=== PATIENT | female | born 1980 | race Caucasian/White ===

== ENCOUNTER 2016-12-05 20:42 | Emergency (ER) | payer MEDICAID ==
[2016-12-05 20:59] VITALS: BP 137/83
[2016-12-05] MEDS ORDERED: HYDROmorphone 1 MG/ML Syringe IVPUSH ONE ×2 (21:16→23:42)
[2016-12-05] MEDS ORDERED: Ondansetron 4 MG/2 ML SDV IVPUSH ONE (21:16)
--- NOTE | 2016-12-05 21:23 | EDM.PDOC ---
ED HPI GI/ABDOMINAL - General Chief Complaint: Gastrointestinal Problem Stated Complaint: RECTAL BLEEDING/CLOTS ABDOMINAL PAIN Time Seen by Provider: 12/05/16 20:52 Source of Information: Reports: Patient, RN notes reviewed History Limitations: Reports: No limitations - History of Present Illness INITIAL COMMENTS - FREE TEXT/NARRATIVE: The patient states that she found maroon blood clots and bright red blood per rectum when she went to the bathroom around 19:00 tonight. She did not have any pain at the time, but shortly afterwards he developed suprapubic and left lower quadrant abdominal pain. No recent nausea, vomiting, constipation, diarrhea, or urinary symptoms. No prior similar symptoms. The patient is not on any blood thinners. Her last colonoscopy was approximately 1.5 years ago, per Dr. Deena Rhodes. The patient recalls the finding of a single colon polyp, but does not recall anything about diverticulosis. Reviewing our records, I do not find a copy of the patient's colonoscopy report. - Related Data Allergies/ADRs: Allergies Allergy/AdvReac Type Severity Reaction Status Date / Time No Known Allergies Allergy Verified 12/05/16 20:54 Home Meds: Home Meds Omeprazole 40 mg PO BID 07/27/15 [History] Albuterol [Ventolin HFA] 2 puff INH Q4H PRN 02/26/16 [History] Zolpidem [Ambien] 5 mg PO BEDTIME PRN 02/26/16 [History] SUMAtriptan [Imitrex] 25 mg PO Q2H PRN #16 tablet 07/15/16 [Rx] Divalproex Sodium [Depakote] 1 tab PO DAILY 08/12/16 [History] Past Medical History HEENT History: Reports: Allergic rhinitis, Impaired vision Respiratory History: Reports: Asthma Gastrointestinal History: Reports: Colon polyp, GERD, PUD INVENTORY TAKER History: Reports: 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, Musculoskeletal History: Reports: Back pain, chronic (Degenerative disc disease) Neurological History: Reports: Migraines Psychiatric History: Reports: Other (see below) (Insomnia) - Past Surgical History HEENT Surgical History: Reports: Adenoidectomy, Tonsillectomy GI Surgical History: Reports: Cholecystectomy Female Surgical History: Reports: Hysterectomy (vaginal), Other (see below) ( Exploratory laparoscopy for endometriosis x 2) Neurological Surgical History: Reports: Lumbar spine (L5-S1 fusion), Other (see below) (Implantable spinal nerve stimulator) Social & Family History - Family History Family Medical History: Noncontributory - Tobacco Use Smoking Status *Q: Former Smoker Tobacco Use Within Last Twelve Months: No Years of Tobacco use: 10 Packs/Tins Daily: 0.5 Used Tobacco, but Quit: Yes Month Tobacco Last Used: Quit December 2013 Second Hand Smoke Exposure: No - Caffeine Use Caffeine Use: Reports: None - Alcohol Use Alcohol Use History: Yes Alcohol Use Frequency: Rarely - Recreational Drug Use Recreational Drug Use: No - Living Situation & Occupation Living situation: Reports: , with family (3 kids) Occupation: unemployed ED ROS GENERAL - Review of Systems Review Of Systems: See Below Constitutional: Reports: no symptoms HEENT: Reports: Other (Seasonal allergy symptoms) Respiratory: Reports: No Symptoms Cardiovascular: Reports: No symptoms Endocrine: Reports: no symptoms GI/Abdominal: Reports: No symptoms : Reports: no symptoms Musculoskeletal: Reports: no symptoms Skin: Reports: no symptoms Neurological: Reports: No Symptoms Psychiatric: Reports: No symptoms Hematologic/Lymphatic: Reports: no symptoms Immunologic: Reports: no symptoms ED EXAM, GI/ABD - Physical Exam Exam: See Below Exam Limited By: No limitations General Appearance: alert, WD/WN, anxious, mild distress Eyes: bilateral: normal appearance, EOMI Ears: normal external exam, hearing grossly normal Nose: normal inspection, no blood Throat/Mouth: Normal inspection, Normal lips, Normal voice, No airway compromise Head: atraumatic, normocephalic Neck: normal inspection, full range of motion Respiratory/Chest: no respiratory distress, lungs clear, normal breath sounds, no accessory muscle use Cardiovascular: normal peripheral pulses, regular rate, rhythm, no edema, no gallop, no JVD, no murmur, no rub GI/Abdominal: normal bowel sounds, soft, no organomegaly, no distention, no abnormal bruit, no mass, tenderness (Entire lower abdomen. Upper abdomen nontender.), guarding (Female) Exam: Deferred Rectal (Female) Exam: Normal Exam, Normal rectal tone, Heme + stool (Scant blood on finger. No stool in rectum.) Back Exam: normal inspection, full range of motion, CVA tenderness (L), CVA tenderness (R) Extremities: normal inspection, normal range of motion, no pedal edema, normal capillary refill Neurological: alert, oriented, normal cognition, no motor/sensory deficits Psychiatric: normal affect Skin Exam: Warm, Dry, Intact, Normal color, No rash Lymphatic: no adenopathy Course - Vital Signs Last Recorded V/S: Last Vital Signs Temp 36.7 C 12/05/16 20:55 Pulse 84 12/05/16 20:55 Resp 18 12/05/16 20:55 BP 137/83 12/05/16 20:55 Pulse Ox 100 12/05/16 20:55 Orthostatic Blood Pressure [ 120/81 Standing] Orthostatic Blood Pressure [ 119/80 Sitting] Orthostatic Blood Pressure [ 125/74 Supine] - Orders/Labs/Meds Orders: Active Orders 24 hr Category Date Time Status Orthostatic Vital Signs [RC] STAT Care 12/05/16 21:18 Active Abdomen Pelvis w Cont [CT] Stat Exams 12/05/16 21:16 Taken Sodium Chloride 0.9% [Normal Saline] 1,000 ml Med 12/05/16 21:30 Active IV ASDIRECTED Medication Orders Sodium Chloride (Normal Saline) 1,000 mls @ 150 mls/hr IV ASDIRECTED JAYE Last Admin: 12/05/16 21:35 Dose: 150 mls/hr Labs: Laboratory Tests 12/05/16 12/05/16 12/05/16 Range/Units 21:33 21:33 21:33 WBC 9.83 (3.98-10.04) K/mm3 RBC 4.09 (3.98-5.22) M/mm3 Hgb 12.3 (11.2-15.7) gm/L Hct 36.8 (34.1-44.9) % MCV 90.0 (79.4-94.8) fl MCH 30.1 (25.6-32.2) pg MCHC 33.4 (32.2-35.5) g/dl RDW Std Deviation 41.9 (36.4-46.3) fL Plt Count 272 (182-369) K/mm3 MPV 10.2 (9.4-12.3) fl Neutrophils % (Manual) 68 H (40-60) % Band Neutrophils % 0 (0-10) % Lymphocytes % (Manual) 20 (20-40) % Atypical Lymphs % 5 % Monocytes % (Manual) 5 (2-10) % Eosinophils % (Manual) 1 (0.7-5.8) % Basophils % (Manual) 1 (0.1-1.2) Toxic Granulation 2+ moderate Platelet Estimate Adequate Plt Morphology Comment Normal RBC Morph Comment Normal PT 10.0 (8.0-13.0) SECONDS INR 0.92 APTT 23 (22-36) SECONDS Sodium 144 (136-145) mEq/L Potassium 3.9 (3.5-5.1) mEq/L Chloride 105 (98-107) mEq/L Carbon Dioxide 23 (21-32) mEq/L Anion Gap 19.9 H (5-15) BUN 17 (7-18) mg/dL Creatinine 1.0 (0.55-1.02) mg/dL Est Cr Clr Drug Dosing 74.90 mL/min Estimated GFR (MDRD) > 60 (>60) mL/min BUN/Creatinine Ratio 17.0 (14-18) Glucose 106 (74-106) mg/dL Calcium 8.4 L (8.5-10.1) mg/dL Total Bilirubin 0.2 (0.2-1.0) mg/dL AST 16 (15-37) U/L ALT 30 (14-59) U/L Alkaline Phosphatase 73 (46-116) U/L Total Protein 6.6 (6.4-8.2) g/dl Albumin 3.3 L (3.4-5.0) g/dl Globulin 3.3 gm/dL Albumin/Globulin Ratio 1.0 (1-2) Lipase 192 (73-393) U/L Urine Color (Yellow) Urine Appearance (Clear) Urine pH (5.0-8.0) Ur Specific [place] (1.005-1.030) Urine Protein (Negative) Urine Glucose (UA) (Negative) Urine Ketones (Negative) Urine Occult Blood (Negative) Urine Nitrite (Negative) Urine Bilirubin (Negative) Urine Urobilinogen (0.2-1.0) Ur Leukocyte Esterase (Negative) Urine RBC (0-5) /hpf Urine WBC (0-5) /hpf Ur Epithelial Cells Ur Squamous Epith Cells (0-5) /hpf Calcium Oxalate Crystal (NONE) Urine Bacteria (FEW) /hpf Urine Mucus (FEW) /hpf 12/05/16 12/05/16 Range/Units 21:46 23:35 WBC (3.98-10.04) K/mm3 RBC (3.98-5.22) M/mm3 Hgb (11.2-15.7) gm/L Hct (34.1-44.9) % MCV (79.4-94.8) fl MCH (25.6-32.2) pg MCHC (32.2-35.5) g/dl RDW Std Deviation (36.4-46.3) fL Plt Count (182-369) K/mm3 MPV (9.4-12.3) fl Neutrophils % (Manual) (40-60) % Band Neutrophils % (0-10) % Lymphocytes % (Manual) (20-40) % Atypical Lymphs % % Monocytes % (Manual) (2-10) % Eosinophils % (Manual) (0.7-5.8) % Basophils % (Manual) (0.1-1.2) Toxic Granulation Platelet Estimate Plt Morphology Comment RBC Morph Comment PT (8.0-13.0) SECONDS INR APTT (22-36) SECONDS Sodium (136-145) mEq/L Potassium (3.5-5.1) mEq/L Chloride (98-107) mEq/L Carbon Dioxide (21-32) mEq/L Anion Gap (5-15) BUN (7-18) mg/dL Creatinine (0.55-1.02) mg/dL Est Cr Clr Drug Dosing mL/min Estimated GFR (MDRD) (>60) mL/min BUN/Creatinine Ratio (14-18) Glucose (74-106) mg/dL Calcium (8.5-10.1) mg/dL Total Bilirubin (0.2-1.0) mg/dL AST (15-37) U/L ALT (14-59) U/L Alkaline Phosphatase (46-116) U/L Total Protein (6.4-8.2) g/dl Albumin (3.4-5.0) g/dl Globulin gm/dL Albumin/Globulin Ratio (1-2) Lipase (73-393) U/L Urine Color Yellow Light yellow (Yellow) Urine Appearance Clear Clear (Clear) Urine pH 6.0 5.5 (5.0-8.0) Ur Specific [place] > or = 1.030 1.020 (1.005-1.030) Urine Protein 1+ H Negative (Negative) Urine Glucose (UA) Negative Negative (Negative) Urine Ketones Trace H Negative (Negative) Urine Occult Blood Negative Negative (Negative) Urine Nitrite Negative Negative (Negative) Urine Bilirubin 1+ H Negative (Negative) Urine Urobilinogen 0.2 0.2 (0.2-1.0) Ur Leukocyte Esterase Negative Negative (Negative) Urine RBC 0-5 Not seen (0-5) /hpf Urine WBC 5-10 H 0-5 (0-5) /hpf Ur Epithelial Cells Not Reportable Not Reportable Ur Squamous Epith Cells 5-10 H 5-10 H (0-5) /hpf Calcium Oxalate Crystal Few H (NONE) Urine Bacteria Many H Not seen (FEW) /hpf Urine Mucus Many H Not seen (FEW) /hpf Meds: Medications Generic Name Dose Route Start Last Admin Trade Name Freq PRN Reason Stop Dose Admin Sodium Chloride 1,000 mls @ 150 mls/hr 12/05/16 21:30 12/05/16 21:35 Normal Saline IV 150 mls/hr ASDIRECTED JAYE Administration Discontinued Medications Generic Name Dose Route Start Last Admin Trade Name Freq PRN Reason Stop Dose Admin Hydromorphone HCl 1 mg 12/05/16 21:16 12/05/16 21:35 Dilaudid IVPUSH 12/05/16 21:17 1 mg ONETIME ONE Administration Hydromorphone HCl 1 mg 12/05/16 23:42 12/05/16 23:50 Dilaudid IVPUSH 12/05/16 23:43 1 mg ONETIME ONE Administration Ondansetron HCl 4 mg 12/05/16 21:16 12/05/16 21:35 Zofran IVPUSH 12/05/16 21:17 4 mg ONETIME ONE Administration - Radiology Interpretation Free Text/Narrative:: CT of the abdomen and pelvis with oral and IV contrast is read by [facility] as: 1. No acute findings. 2. Non-acute findings are described above. - Re-Assessments/Exams Free Text/Narrative Re-Assessment/Exam: 12/05/16 22:16 The patient is not orthostatic. 12/05/16 22:27 The patient's urinalysis is contaminated and uninterpretable. I had ordered a quick catheter, and explained to the patient at the time why that was necessary , however, when the nurse went to acquire the urine sample, the patient apparently refused. Given that the patient is complaining of lower abdominal pain and has suprapubic tenderness, I think it is important that we rule out a UTI, therefore I am requesting that we obtain a second urine sample, this time by quick catheter. 12/06/16 00:22 Test results discussed with the patient. Today's workup is completely unremarkable, and does not explain the cause of the patient's pain or lower GI bleed. I am recommending that if her symptoms persist, that she followup with Dr. Rhodes for possible colonoscopy. Departure - Departure Time of Disposition: 00:23 Disposition: Home, Self-Care 01 Condition: good Clinical Impression: Lower GI bleed, Abdominal pain of unknown etiology Referrals: Leann Meeks DO [Primary Care Provider] - Deena Rhodes MD [Physician] - Forms: ED Department Discharge Additional Instructions: You were seen in the emergency room for rectal bleeding and lower abdominal pain. Workup in the ER included blood work, a urinalysis, a CT scan of your abdomen and pelvis, and positional blood pressure checks. Your entire workup was unremarkable, and does not explain the cause of your lower GI bleed or abdominal pain. If your symptoms persist, we recommend that you followup with Dr. Deena Rhodes for further evaluation, possibly including a colonoscopy. If any other problems, please do not hesitate to return to the ER. - My Orders Last 24 Hours: My Active Orders 12/05/16 21:16 Abdomen Pelvis w Cont [CT] Stat 12/05/16 21:18 Orthostatic Vital Signs [RC] STAT 12/05/16 21:30 Sodium Chloride 0.9% [Normal Saline] 1,000 ml IV ASDIRECTED - Assessment/Plan Last 24 Hours: My Active Orders 12/05/16 21:16 Abdomen Pelvis w Cont [CT] Stat 12/05/16 21:18 Orthostatic Vital Signs [RC] STAT 12/05/16 21:30 Sodium Chloride 0.9% [Normal Saline] 1,000 ml IV ASDIRECTED
[2016-12-05] MEDS ORDERED: Sodium Chloride 0.9% 1,000 ML IV SCH (21:30)
--- NOTE | 2016-12-06 08:18 | CT ---
CT abdomen and pelvis Technique: Multiple axial sections were obtained from above the dome of the diaphragm inferiorly through the pubic symphysis. Intravenous and oral contrast was utilized. Delayed images were also obtained through the bladder. Comparison: Previous abdominal and pelvic CT of 11/02/14 is available. Findings: Visualized lung bases are clear. Liver and spleen shows no focal parenchymal abnormality. Adrenal glands show no nodule. Pancreas is within normal limits. Surgical clips seen from prior cholecystectomy. Kidneys show symmetric contrast enhancement without hydronephrosis or mass. Electro-stimulating device is seen within the spine. Previous lower lumbar spine surgery is noted. No pelvic mass or adenopathy is seen. Small physiologic cysts are seen within the ovaries. Delayed images show contrast within the bladder. No bowel dilatation is seen. No inflammatory change or free fluid is seen. Appendix is seen which appears normal. Impression: 1. Incidental findings as described above. Nothing acute is identified on CT study of the abdomen and pelvis. No significant change is seen from prior CT exam. Diagnostic code #2 I agree with preliminary report issued by [facility] (preliminary report dictated on 12/06/16, 1:09 AM Central Time)
== END 2016-12-06 00:37 | disposition home or self-care (01) ==
LOC: JD.ED 20:42
DX: K92.2 Gastrointestinal hemorrhage, unspecified (principal); R10.32 Left lower quadrant pain; J45.909 Unspecified asthma, uncomplicated; K21.9 Gastro-esophageal reflux disease without esophagitis; Z86.010 Personal history of colon polyps; G89.29 Other chronic pain; M54.9 Dorsalgia, unspecified; G47.00 Insomnia, unspecified; Z87.891 Personal history of nicotine dependence
CPT/HCPCS: 36415; 74177; 80053; 81001; 83690; 85025; 85610; 85730; J1170; J2405; J7040; 96361; 96374; 96375; 99284; 99284-25; P9612

== ENCOUNTER 2017-04-18 00:13 | Emergency (ER) | payer MEDICAID ==
[2017-04-18 00:30] VITALS: BP 114/73
[2017-04-18] MEDS ORDERED: HYDROmorphone 1 MG/ML Syringe IVPUSH ONE ×2 (01:03→04:24)
[2017-04-18] MEDS ORDERED: Metoclopramide 10 MG/2 ML SDV IVPUSH ONE (01:04)
--- NOTE | 2017-04-18 01:08 | EDM.PDOC ---
ED HPI GENERAL MEDICAL PROBLEM - General Chief Complaint: Abdominal Pain Stated Complaint: LOWER BACK PAIN Time Seen by Provider: 04/18/17 01:03 Source of Information: Reports: Patient History Limitations: Reports: No Limitations - History of Present Illness INITIAL COMMENTS - FREE TEXT/NARRATIVE: 36-year-old female presents to the ED with sudden onset of severe right lower quadrant abdominal pain that radiates up towards the right flank. Associated nausea with no vomiting. Pain started suddenly about 2100 hrs. Patient had a neurostimulator in her back that was moved upwards as it was rubbing on her pad line. His is been in place for a lengthy period of time for chronic low back pain control. It is working well for her and she'll is on no oral opiates. She has no history of renal colic or stones. Has not no cine change in the color of her urine and has no dysuria urgency or frequency. When the pain came it did make her feel like she needs a void but she was unable to do so. Of concern she is on clindamycin 300 mg 4 times daily for an infection that started in her surgical wound where the neurostimulator was moved upwards. This surgery was performed on 08 April. She has developed loose stools greater than 6 per day the last 2 days worrisome for development of Clostridium difficile infection. No associated fever or chills. Onset: Sudden Onset Date: 04/17/17 Onset Time: 21:00 Duration: Hour(s): Location: Reports: Abdomen (Right hemiabdomen from the groin to the right flank area.), Back (Right flank), Radiates to (Right flank) Quality: Reports: Ache, Sharp, Stabbing, Other Severity: Severe (Colicky) Improves with: Reports: None Worsens with: Reports: None Context: Denies: Activity, Exercise, Lifting, Sick Contact, Trauma Associated Symptoms: Reports: Nausea/Vomiting, Other (Has diarrhea greater than 60 times per day last 2 days well on clindamycin for wound infection.) Treatments HALF SECTION IRONER: Reports: Other (see below) (Tried Motrin with no relief) Right Lower Abdominal Pain Score (Numeric/FACES): 10 - Related Data Allergies Allergy/AdvReac Type Severity Reaction Status Date / Time No Known Allergies Allergy Verified 12/05/16 20:54 Home Meds: Home Meds Omeprazole 40 mg PO BID 07/27/15 [History] Albuterol [Ventolin HFA] 2 puff INH Q4H PRN 02/26/16 [History] Zolpidem [Ambien] 5 mg PO BEDTIME PRN 02/26/16 [History] Clindamycin HCl 150 mg PO QID 04/18/17 [History] Past Medical History HEENT History: Reports: Allergic Rhinitis, Impaired Vision Other Cardiovascular History: heart palpitations Respiratory History: Reports: Asthma Gastrointestinal History: Reports: Colon Polyp, GERD, PUD 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: 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, Musculoskeletal History: Reports: Back Pain, Chronic Neurological History: Reports: Migraines Psychiatric History: Reports: Other (See Below) Other Dermatologic History: eczema - Past Surgical History Female Surgical History: Reports: Hysterectomy, Other (See Below) Neurological Surgical History: Reports: Lumbar Spine, Other (See Below) Musculoskeletal Surgical History: Reports: Other (See Below) Social & Family History - Family History Family Medical History: Noncontributory - Tobacco Use Smoking Status *Q: Former Smoker Years of Tobacco use: 10 Packs/Tins Daily: 0.5 Used Tobacco, but Quit: Yes Month Tobacco Last Used: unknown Second Hand Smoke Exposure: No - Caffeine Use Caffeine Use: Reports: None - Alcohol Use Days Per Week of Alcohol Use: 0 Number of Drinks Per Day: 0 Total Drinks Per Week: 0 - Recreational Drug Use Recreational Drug Use: No Drug Use in Last 12 Months: No - Living Situation & Occupation Living situation: Reports: , with Family Occupation: Unemployed ED ROS GENERAL - Review of Systems Review Of Systems: See Below Constitutional: Reports: Decreased Appetite. Denies: Fever, Chills, Malaise, Weakness, Fatigue, Weight Loss HEENT: Reports: No Symptoms Respiratory: Reports: No Symptoms Cardiovascular: Reports: No Symptoms Endocrine: Reports: No Symptoms GI/Abdominal: Reports: Abdominal Pain (See history of present illness), Diarrhea (Greater than 68 times per day 2 days while on clindamycin 300 mg 4 times a day for the last 8 days.), Decreased Appetite, Nausea (With current pain that started last evening.). Denies: Hematochezia, Vomiting : Reports: Other (Has a sense of needing to void but unable to do so) Musculoskeletal: Reports: Back Pain (Right flank pain), Other Skin: Reports: No Symptoms (Chronic low back pain for which she has a neurostimulator in place.) Neurological: Reports: No Symptoms Psychiatric: Reports: No Symptoms ED EXAM, GI/ABD - Physical Exam Exam: See Below Exam Limited By: No Limitations General Appearance: Alert, WD/WN, Moderate Distress (No obvious discomfort.) Eyes: Bilateral: Normal Appearance (No jaundice.) Throat/Mouth: Normal Inspection, Normal Lips, Normal Oropharynx Head: Atraumatic, Normocephalic Neck: Normal Inspection, Supple, Non-Tender, Full Range of Motion. No: Carotid Bruit, Lymphadenopathy (L), Lymphadenopathy (R) Respiratory/Chest: No Respiratory Distress, Lungs Clear, Normal Breath Sounds, No Accessory Muscle Use Cardiovascular: Normal Peripheral Pulses, Regular Rate, Rhythm, No Edema, No Gallop, No Murmur GI/Abdominal Exam: Guarding (Right lower quadrant of the abdomen with deep palpation.), Tender, Abnormal Bowel Sounds (Hypoactive bowel sounds throughout.) , Other (Moderately obese which limited ability to palpate solid organs.). No: Rigid ( Mild guarding right lower quadrant), Rebound Back Exam: Other (2 surgical wounds are evident on her lower back. The most recent one is over the right iliac crest posteriorly it appears to be healing well with no signs of infection at this time.) Extremities: Normal Inspection, Normal Range of Motion, Non-Tender, No Pedal Edema Neurological: Alert, Oriented, CN II-XII Intact, Normal Cognition, Normal Gait Psychiatric: Normal Affect Skin Exam: Warm, Dry, Intact, Normal Color, No Rash Course - Vital Signs Last Recorded V/S: Last Vital Signs Temp 36.4 C 04/18/17 00:25 Pulse 89 04/18/17 00:25 Resp 16 04/18/17 00:25 BP 114/73 04/18/17 00:25 Pulse Ox 96 04/18/17 00:25 - Orders/Labs/Meds Orders: Active Orders 24 hr Category Date Time Status Abdomen Pelvis wo Cont [CT] Stat Exams 04/18/17 01:06 Taken C DIFFICILE BY PCR W/NAP1 [MOLEC] Stat Lab 04/18/17 01:05 Ordered Labs: Laboratory Tests 04/18/17 04/18/17 Range/Units 01:08 03:54 C-Reactive Protein 1.0 (<1.0) mg/dL Urine Color Yellow (Yellow) Urine Appearance Clear (Clear) Urine pH 5.5 (5.0-8.0) Ur Specific [place] > or = 1.030 (1.005-1.030) Urine Protein Trace H (Negative) Urine Glucose (UA) Negative (Negative) Urine Ketones Negative (Negative) Urine Occult Blood Negative (Negative) Urine Nitrite Negative (Negative) Urine Bilirubin Negative (Negative) Urine Urobilinogen 0.2 (0.2-1.0) Ur Leukocyte Esterase Negative (Negative) Urine RBC 0-5 (0-5) /hpf Urine WBC 0-5 (0-5) /hpf Ur Epithelial Cells 0-5 (0-5) /hpf Urine Bacteria Rare (FEW) /hpf Urine Mucus Moderate H (FEW) /hpf Meds: Medications Discontinued Medications Generic Name Dose Route Start Last Admin Trade Name Freq PRN Reason Stop Dose Admin Dicyclomine HCl 20 mg 04/18/17 04:24 04/18/17 04:34 Bentyl PO 04/18/17 04:25 20 mg ONETIME ONE Administration Hydromorphone HCl 1 mg 04/18/17 01:03 04/18/17 01:17 Dilaudid IVPUSH 04/18/17 01:04 1 mg ONETIME ONE Administration Hydromorphone HCl 1 mg 04/18/17 04:24 04/18/17 04:34 Dilaudid IVPUSH 04/18/17 04:25 1 mg ONETIME ONE Administration Sodium Chloride 1,000 mls @ 150 mls/hr 04/18/17 01:15 04/18/17 01:15 Normal Saline IV 150 mls/hr ASDIRECTED JAYE Administration Magnesium Citrate 240 ml 04/18/17 03:53 04/18/17 04:11 Citrate Of Magnesia PO 04/18/17 03:54 240 ml ONETIME ONE Administration Metoclopramide HCl 10 mg 04/18/17 01:04 04/18/17 01:16 Reglan IVPUSH 04/18/17 01:05 10 mg ONETIME ONE Administration - Radiology Interpretation Free Text/Narrative:: 36-year-old female with chronic low back pain in a neural stimulator to control this pain presents to the ED with a acute onset of severe right lower quadrant abdominal pain. Pain is strongly colicky and had gives her the feeling of need to void but she is unable to do so. It also radiates up towards the right flank suggesting renal colic. She has no history of previous renal colic. Recently had her neurostimulator moved upwards in its placement because it was rubbing on her pant line. There was suspicion for a wound infection developing and she' s been placed on clindamycin 300 mg 4 times a day since last April 08. She has developed diarrhea between 6 and 8 loose stools the last 2 days without blood. Starting for the development of C. difficile enteritis. Plan if she does have a stool here we will check it for C. difficile and white count. Urinalysis if she can void. IV started at normal saline 150 mils per hour. Given Dilaudid 1 mg with Reglan 10 mg IV for acute pain and nausea relief. CT of the abdomen will be completed per renal protocol - Re-Assessments/Exams Free Text/Narrative Re-Assessment/Exam: 04/18/17 03:44 thus far the patient has not produced any urinalysis and has had no further diarrhea stool while in the department. CT of the abdomen and pelvis had been done and revealed previous cholecystectomy and hysterectomy. No stones were identified within either renal parenchyma or obstructing the ureters on either side. There is a fair amount of stool throughout the right hemicolon particularly in the cecum. The appendix is visualized and is normal. Ears most her pain was secondary to constipation primarily involving the right hemicolon. She'll be treated with Citroma 8 ounces by mouth mixed with 5 ounces of juice of choice. 04/18/17 04:24 the urinalysis has now returned and is completely normal. Pain is coming back and patient will be given Dilaudid 1 mg IV that she might be able to sleep a bit longer. Chest good work at 11 this morning. Also give her Bentyl 20 mg by mouth. Be sent home with Citroma 8 ounces by mouth to take as soon as she gets home mixed with 5-6 ounces of juice. This should provide bowel cleanse over the next 5 hours. Departure - Departure Time of Disposition: 04:25 Disposition: Home, Self-Care 01 Condition: Fair Clinical Impression: Constipation by delayed colonic transit Abdominal pain Qualifiers: Abdominal location: right lower quadrant Qualified Code(s): R10.31 - Right lower quadrant pain - Discharge Information Instructions: Constipation, Adult, [id number], Abdominal Pain, Adult, Easy-to -Read Referrals: Leann Meeks, DO [Primary Care Provider] - Forms: ED Department Discharge Additional Instructions: Evaluation in the emergency room tonight in regards to acute onset of severe right lower abdominal pain rating to the groin and somewhat rating up into the right flank. This presentation was suggestive of possible renal colic or stone in the right ureter. He received pain medication Dilaudid 1 mg with Reglan 10 mg IV to relieve acute pain and nausea. CT scan of the abdomen and pelvis was performed and did not reveal any stones within either kidney or ureter drainage system. Evidence of previous gallbladder removal liver appeared normal as did the pancreas. The CT does show however a large amount of stool throughout the right hemicolon particularly the lower portion called the cecum. This should be done in your right pelvis area where her pain is. Note there was no signs to suggest appendicitis. The rectum was empty. Urinalysis was completely normal with no signs of infection. Treatment is therefore oral Citroma 8 ounces by mouth mixed with 5-6 ounces of juice taken by mouth once when you get home. This will probably take 3-4 hours to start to work in your bowel movement 3 or 4 times today. This should provide relief of the abdominal pain as the stool bolus will move to the left side. May eat and drink as per normal. You have received a second dose of Dilaudid for pain relief prior to discharge from the emergency room alleviate recurrence of the pain and so that you might get some sleep tonight. Return to medical care if not markedly improved in 12 hours time or after bowel cleanse. If diarrhea continues particularly if you're having more than 6 bowel movements in a day as we had discussed earlier I would suggest stopping the clindamycin as it appears that the wound infection has settled down completely and need for further clindamycin does not appear to be necessary. Follow-up with personal physician if diarrhea is not markedly improved in 3 days time. - My Orders Last 24 Hours: My Active Orders 04/18/17 01:05 C DIFFICILE BY PCR W/NAP1 [MOLEC] Stat 04/18/17 01:06 Abdomen Pelvis wo Cont [CT] Stat - Assessment/Plan Last 24 Hours: My Active Orders 04/18/17 01:05 C DIFFICILE BY PCR W/NAP1 [MOLEC] Stat 04/18/17 01:06 Abdomen Pelvis wo Cont [CT] Stat
[2017-04-18] MEDS ORDERED: Sodium Chloride 0.9% 1,000 ML IV SCH (01:15)
[2017-04-18] MEDS ORDERED: Magnesium Citrate Solution 296 ML Bottle PO ONE (03:53)
[2017-04-18] MEDS ORDERED: Dicyclomine 10 MG Cap PO ONE (04:24)
--- NOTE | 2017-04-18 08:17 | CT ---
CT abdomen and pelvis Technique: Multiple axial sections were obtained from above the dome of the diaphragm inferiorly through the pubic symphysis. Intravenous and oral contrast not utilized. Study has been performed as a ureteral stone protocol. Comparison: Previous CT abdomen and pelvis exam of 12/05/16. Findings: Kidneys show no abnormal calcifications. No ureteral dilatation or ureteral stone is seen. Visualized lung bases show nothing acute. Noncontrast appearance of the liver and spleen appears within normal limits. Surgical clips are seen from prior cholecystectomy. Small nodule noted within the mauri of the right adrenal gland measuring 1.1 cm. This appears stable from previous CT exams back to 11/02/14 and therefore felt to represent incidental adenoma. Pancreas is normal. Aorta shows no aneurysmal dilatation. No retroperitoneal adenopathy or mesenteric abnormalities are seen. No pelvic mass or adenopathy is seen. Electrostimulation device is seen within the thoracic spine. No inflammatory change is seen. Appendix is seen which appears normal. No bowel dilatation or free fluid is seen. Bone window settings were reviewed which shows previous surgery at L5-S1 with transpedicle screws and posterior laminectomy. Impression: 1. Small right adrenal nodule better seen on current exam than on previous studies but felt to be stable and due to incidental adrenal adenoma. 2. No renal calculi, ureteral dilatation or ureteral stone is seen. 3. Other incidental findings. Diagnostic code #2 Agree with preliminary report issued by [facility] ([facility] preliminary report dictated on 04/18/17, 3:12 AM Central Time)
== END 2017-04-18 04:50 | disposition home or self-care (01) ==
LOC: JD.ED 00:13
DX: K59.01 Slow transit constipation (principal); J45.909 Unspecified asthma, uncomplicated; K21.9 Gastro-esophageal reflux disease without esophagitis; G43.909 Migraine, unspecified, not intractable, without status migrainosus; Z90.710 Acquired absence of both cervix and uterus; Z98.890 Other specified postprocedural states; Z87.891 Personal history of nicotine dependence
CPT/HCPCS: 36415; 74176; 81001; 86140; 96361; 96374; 96375; 96376; 99284; A9270; J1170; J2765; J7040; 99283

== ENCOUNTER 2017-05-29 19:28 | Emergency (ER) | payer MEDICAID ==
[2017-05-29 19:41] VITALS: BP 105/61
--- NOTE | 2017-05-29 19:46 | EDM.PDOC ---
ED HPI GENERAL MEDICAL PROBLEM - General Chief Complaint: Upper Extremity Injury/Pain Stated Complaint: INJURED LEFT WRIST Time Seen by Provider: 05/29/17 19:42 Source of Information: Reports: Patient History Limitations: Reports: No Limitations - History of Present Illness INITIAL COMMENTS - FREE TEXT/NARRATIVE: 36-year-old female attends the ED for assessment of left wrist and hand injury she sustained last evening. 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 they began to fight and she had her dogs leash wrapped around her left wrist. She was thus compressed and jerked repeatedly from the left hand and wrist during the dog fight. She was not bitten. Today the left hand and wrist is or so painful she has is limited very limited movement either flexion or adduction or abduction. States pain is constant and throbbing rates it as 7 out of 10. Note she did not fall on the hand. Denies any other injuries Onset: Sudden Onset Date: 05/28/17 Onset Time: 20:00 Duration: Hour(s): Location: Reports: Upper Extremity, Left (wrist and hand.) Quality: Reports: Ache, Throbbing Improves with: Reports: Cold Therapy, Medication Worsens with: Reports: Movement Context: Reports: Trauma (see history of present illness.). 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 RESOURCES ASSISTANT: Reports: NSAIDS Left Wrist Pain Score (Numeric/FACES): 7 - Related Data Allergies Allergy/AdvReac Type Severity Reaction Status Date / Time No Known Allergies Allergy Verified 12/05/16 20:54 Home Meds: Home Meds Omeprazole 40 mg PO BID 07/27/15 [History] Albuterol [Ventolin HFA] 2 puff INH Q4H PRN 02/26/16 [History] Zolpidem [Ambien] 5 mg PO BEDTIME PRN 02/26/16 [History] Diclofenac Sodium [Voltaren] 50 mg PO TIDMEALS #24 tab.ec 05/29/17 [Rx] oxyCODONE HCl/Acetaminophen [Percocet 5-325 mg Tablet] 1 - 2 each PO Q4H PRN # 15 tablet 05/29/17 [Rx] Past Medical History HEENT History: Reports: Allergic Rhinitis, Impaired Vision Other Cardiovascular History: heart palpitations Respiratory History: Reports: Asthma Gastrointestinal History: Reports: Colon Polyp, GERD, PUD 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: Reports: 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, Musculoskeletal History: Reports: Back Pain, Chronic Neurological History: Reports: Migraines Psychiatric History: Reports: Other (See Below) Other Dermatologic History: eczema - Past Surgical History Female Surgical History: Reports: Hysterectomy, Other (See Below) Neurological Surgical History: Reports: Lumbar Spine, Other (See Below) Musculoskeletal Surgical History: Reports: Other (See Below) Social & Family History - Family History Family Medical History: Noncontributory - Tobacco Use Smoking Status *Q: Former Smoker Years of Tobacco use: 10 Packs/Tins Daily: 0.5 Used Tobacco, but Quit: Yes Month Tobacco Last Used: unknown Second Hand Smoke Exposure: No - Caffeine Use Caffeine Use: Reports: None - Alcohol Use Days Per Week of Alcohol Use: 0 Number of Drinks Per Day: 0 Total Drinks Per Week: 0 - Recreational Drug Use Recreational Drug Use: No Drug Use in Last 12 Months: No - Living Situation & Occupation Living situation: Reports: , with Family Occupation: Unemployed Review of Systems - Review of Systems Review Of Systems: See Below Constitutional: Denies: Chills, Diaphoresis, Fever, Weakness, Other Eyes: Reports: No Symptoms Ears: Reports: No Symptoms Nose: Reports: No Symptoms Mouth/Throat: Reports: No Symptoms Respiratory: Reports: Shortness of Breath (on exertion.), Other (history of asthma with occasional wheezing feels that her symptoms are well-controlled at this time) Cardiovascular: Reports: No Symptoms GI/Abdominal: Reports: Other (chronic problems with dyspepsia suspect hiatal hernia.) Genitourinary: Reports: Other (urinary frequency) Musculoskeletal: Reports: Back Pain Skin: Reports: No Symptoms Neurological: Reports: No Symptoms Psychiatric: Reports: No Symptoms ED EXAM, GENERAL - Physical Exam Exam: See Below Exam Limited By: No Limitations General Appearance: Alert, WD/WN, Mild Distress Peripheral Pulses: 2+: Radial (L), Radial (R) Extremities: Other (examination was essentially limited to the left lower extremity. She has evidence of swelling of her left hand possibly from limited mobility and also from recent use of an Mikal wrap on her hand the last 24 hours. She has inability to make a closed fist due to pain in the wrist dorsally. She has good radial and ulnar pulses. Pain noted over the scaphoid bone or anatomical snuffbox. Pain over the distal radius and distal ulnar styloid processes. She has no ability to abduct or adduct the wrist. Flexion of only 5 is available. Also extension is limited to about 5.) Neurological: Alert, Oriented, CN II-XII Intact, Normal Cognition, Normal Gait Psychiatric: Normal Affect, Normal Mood Skin Exam: Warm, Dry, Intact, Normal Color, No Rash Course - Vital Signs Last Recorded V/S: Last Vital Signs Temp 36.6 C 05/29/17 19:37 Pulse 100 05/29/17 19:37 Resp 16 05/29/17 19:37 BP 105/61 05/29/17 19:37 Pulse Ox 100 05/29/17 19:37 - Orders/Labs/Meds Orders: Active Orders 24 hr Category Date Time Status Hand 2V Lt [CR] Stat Exams 05/29/17 19:45 Taken Wrist Comp Min 3V Lt [CR] Stat Exams 05/29/17 19:43 Taken - Radiology Interpretation Free Text/Narrative:: 36-year-old female attends the ED for evaluation of injuries to the left distal forearm and hand that occurred last evening while out walking her dog. Combination of compressive and jerking movements to the wrist and hand occurred when her dogs got in a fight with another pitbull. Examination shows swelling of the fingers and some bruising particularly of the third finger. Also hand and wrist are slightly swollen and very painful to touch at the wrist particularly over the ulnar styloid process. Also pain in the anatomical snuffbox on the radial side. Plan x-rays of the hand and wrist will be obtained. - Re-Assessments/Exams Free Text/Narrative Re-Assessment/Exam: 05/29/17 20:43x-rays of the left hand and wrist are within normal limits showing no fractures. Patient will be treated intensively with Mikal wrap applied and elevate the hand above level of heart is much as possible. Limited mobility at present I'm unable to make a fist due to tendon inflammation. His her soft tissue in origin primarily to the distal forearm where the leash went around her wrist and distal forearm. This may take 7-10 days to settle down completely. Pain is constant and throbbing. I will give her 15 tablets of Percocet 5/3/25 milligrams one or 2 every 4-6 hours for pain relief while not at work. 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 Departure - Departure Time of Disposition: 20:44 Disposition: Home, Self-Care 01 Condition: Fair Clinical Impression: Sprain of wrist, left Qualifiers: Encounter type: initial encounter Qualified Code(s): S63.502A - Unspecified sprain of left wrist, initial encounter - Discharge Information Prescriptions: Diclofenac Sodium [Voltaren] 50 mg PO TIDMEALS #24 tab.ec oxyCODONE HCl/Acetaminophen [Percocet 5-325 mg Tablet] 1 - 2 each PO Q4H PRN # 15 tablet PRN Reason: pain relief. Instructions: Wrist Sprain Referrals: Leann Meeks DO [Primary Care Provider] - Forms: ED Department Discharge Additional Instructions: evaluation in the emergency room today in regards to acute injuries to the left distal forearm wrist area and hand that occurred last night. This injury occurred due to a dog leash that was wrapped tightly around her arm while the dog got into a fight with another dog. Thus the wrist forearm and hand were jerked hands compressed multiple times during this event. X-rays were done to make sure there were no bony injuries and no bony injuries were identified. Injuries appear to be soft tissue in origin primarily to the tendons and the tendencies in the proximal forearm which limits ability to move her hand and make a fist. Hand x-ray 2 was also within normal limits. Treatment is Mikal wrap on during the day and off at night. Ice to this area one half hour out of every 4 hours next 24 hours. After this may start to use heat to the area in the same fashion one half hour out of every 4 hours. In the meantime may take anti- inflammatory Voltaren 50 mg 3 times daily for 8 days to reduce pain and inflammation. 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 - My Orders Last 24 Hours: My Active Orders 05/29/17 19:43 Wrist Comp Min 3V Lt [CR] Stat 05/29/17 19:45 Hand 2V Lt [CR] Stat - Assessment/Plan Last 24 Hours: My Active Orders 05/29/17 19:43 Wrist Comp Min 3V Lt [CR] Stat 05/29/17 19:45 Hand 2V Lt [CR] Stat
--- NOTE | 2017-05-30 08:51 | CR ---
Left hand: Twp portable views of the left hand were obtained. Comparison: No previous hand exam. Joint spaces are maintained. No fracture or other bony abnormality is identified. Impression: 1. No abnormality is identified on two-view left hand study. Diagnostic code #1
--- NOTE | 2017-05-30 08:51 | CR ---
Left wrist: Four views of the left wrist were obtained. Comparison: No previous wrist exam. Joint spaces are preserved. No fracture, dislocation or other bony abnormality is identified. Impression: 1. No abnormality is identified on left wrist exam. Diagnostic code #1
== END 2017-05-29 20:55 | disposition home or self-care (01) ==
LOC: JD.ED 19:28
DX: S63.502A Unspecified sprain of left wrist, initial encounter (principal); Z87.891 Personal history of nicotine dependence; W26.8XXA Contact with other sharp object(s), not elsewhere classified, initial encounter
CPT/HCPCS: 73110-26-LT; 73110-LT; 73120-26-LT; 73120-LT; 99283

== ENCOUNTER 2017-08-06 16:30 | Emergency (ER) | payer MEDICAID ==
[2017-08-06 16:53] VITALS: BP 109/70
[2017-08-06] MEDS ORDERED: Ondansetron 4 MG Tab.DIS PO ONE (17:18)
[2017-08-06] MEDS ORDERED: diphenhydrAMINE 50 MG/ML SDV IM ONE (17:18)
[2017-08-06] MEDS ORDERED: Haloperidol Lactate 5 MG/ML SDV IM ONE (17:18)
[2017-08-06] MEDS ORDERED: Ketorolac 60 MG/2 ML SDV IM ONE (17:18)
--- NOTE | 2017-08-06 17:24 | EDM.PDOC ---
ED HPI GENERAL MEDICAL PROBLEM - General Chief Complaint: ENT Problem Stated Complaint: ABCESS TEETH/MIGRAINE Time Seen by Provider: 08/06/17 17:10 Source of Information: Reports: Patient History Limitations: Reports: No Limitations - History of Present Illness INITIAL COMMENTS - FREE TEXT/NARRATIVE: Patient is a 37-year-old female who presents ED complaining of pain to the right upper molars secondary to abscess present and also migraine headache on the right side retro-orbital. Patient states she was diagnosed with abscess to the right 2 upper molars and placed on amoxicillin. She's been taking this for the past 2 days. States pain has been constant in nature waxing waning in intensity. States she needs a root canal but can't afford it. She is going to get them extracted. She has not been appointment. She's been taking Tylenol and ibuprofen with minimal relief. She states due to the discomfort she's developed a migraine headache right sided similar symptoms from previous episodes that is not described as the worse headache of her life. Denies fever, vision changes , nausea vomiting, focal neurological deficits, n/t, difficultly walking, or any additional complaints. Tooth/Teeth Pain Score (Numeric/FACES): 10 - Related Data Allergies Allergy/AdvReac Type Severity Reaction Status Date / Time No Known Allergies Allergy Verified 12/05/16 20:54 Home Meds: Home Meds Omeprazole 40 mg PO BID 07/27/15 [History] Albuterol [Ventolin HFA] 2 puff INH Q4H PRN 02/26/16 [History] Zolpidem [Ambien] 5 mg PO BEDTIME PRN 02/26/16 [History] Amoxicillin 500 mg PO TID 08/06/17 [History] Past Medical History HEENT History: Reports: Allergic Rhinitis, Impaired Vision Cardiovascular History: Reports: Other (See Below) Other Cardiovascular History: heart palpitations Respiratory History: Reports: Asthma Gastrointestinal History: Reports: Colon Polyp, GERD, 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 OUTREACH History: Reports: 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, Musculoskeletal History: Reports: Back Pain, Chronic Other Musculoskeletal History: 4 back surgeries Neurological History: Reports: Migraines Psychiatric History: Reports: Other (See Below) Other Dermatologic History: eczema - Past Surgical History Female Surgical History: Reports: Hysterectomy Neurological Surgical History: Reports: Lumbar Spine Social & Family History - Family History Family Medical History: Noncontributory - Tobacco Use Smoking Status *Q: Never Smoker Years of Tobacco use: 10 Packs/Tins Daily: 0.5 Used Tobacco, but Quit: Yes Month Tobacco Last Used: unknown Second Hand Smoke Exposure: No - Caffeine Use Caffeine Use: Reports: Tea - Alcohol Use Days Per Week of Alcohol Use: 0 Number of Drinks Per Day: 0 Total Drinks Per Week: 0 - Recreational Drug Use Recreational Drug Use: No Drug Use in Last 12 Months: No - Living Situation & Occupation Living situation: Reports: , with Family Occupation: Unemployed ED ROS GENERAL - Review of Systems Review Of Systems: ROS reveals no pertinent complaints other than HPI. - Physical Exam Exam: See Below Exam Limited By: No Limitations General Appearance: Alert, WD/WN, Moderate Distress Eye Exam: Bilateral Eye: EOMI, PERRL Ears: Hearing Grossly Normal Nose: Normal Inspection Throat/Mouth: Normal Voice, No Airway Compromise, Other (Pain along the inner and outer aspect of the gum line along the #1 and 2 molars. Dental decay present. No swelling or drainage noted. No trismus.) Head Exam: Facial Tenderness (On the right cheek). No: Facial Swelling Neck: Normal Inspection, Supple, Non-Tender, Full Range of Motion. No: Lymphadenopathy (L), Lymphadenopathy (R) Respiratory/Chest: No Respiratory Distress, Lungs Clear, Normal Breath Sounds, No Accessory Muscle Use Cardiovascular: Normal Peripheral Pulses, Regular Rate, Rhythm Neuro Exam (Abbreviated): Alert, Oriented, CN II-XII Intact, Normal Cognition, No Motor/Sensory Deficits, Other (Cerebellar function is intact: Finger-nose, rapid alternating movements. Patient ambulating with no issues.) Psychiatric: Normal Affect, Normal Mood Skin Exam: Warm, Dry, Intact, Normal Color Course - Vital Signs Last Recorded V/S: Last Vital Signs Temp 97.1 F 08/06/17 16:52 Pulse 53 L 08/06/17 16:52 Resp 20 08/06/17 16:52 BP 109/70 08/06/17 16:52 Pulse Ox 100 08/06/17 16:52 - Orders/Labs/Meds Meds: Medications Discontinued Medications Generic Name Dose Route Start Last Admin Trade Name Freq PRN Reason Stop Dose Admin Diphenhydramine HCl 50 mg 08/06/17 17:18 08/06/17 17:57 Benadryl IM 12/06/17 17:19 50 mg ONETIME ONE Administration Haloperidol Lactate 7.5 mg 08/06/17 17:18 08/06/17 17:58 Haldol IM 08/06/17 17:19 7.5 mg ONETIME ONE Administration Ketorolac Tromethamine 60 mg 08/06/17 17:18 08/06/17 17:56 Toradol IM 08/06/17 17:19 60 mg ONETIME ONE Administration Ondansetron HCl 4 mg 08/06/17 17:18 08/06/17 17:57 Zofran Odt PO 08/06/17 17:19 4 mg ONETIME ONE Administration - Re-Assessments/Exams Free Text/Narrative Re-Assessment/Exam: At this point the abscess to the #1 and #2 tooth do not appear to be significant. She did have pain along the gumlines but there is no swelling or drainage present. States she's having a migraine headache that is similar pattern from previous episodes. Right-sided retro-orbital with photophobia present. On examination there is no concerning findings. We'll treat to abort the headache which includes Haldol 7.5 mg IM, Benadryl 50 mg IM, Toradol 60 mg IM, and Zofran 4 mg ODT. 08/06/17 19:00 Per nursing patient is soundly asleep. Will discharge home with instructions as documented. She does have a ride present. Departure - Departure Time of Disposition: 19:00 Disposition: Home, Self-Care 01 Condition: Good Clinical Impression: Migraine Qualifiers: Migraine type: unspecified Status migrainosus presence: without status migrainosus Intractability: not intractable Qualified Code(s): G43.909 - Migraine, unspecified, not intractable, without status migrainosus - Discharge Information Instructions: Migraine Headache, [id number] Referrals: Leann Meeks DO [Primary Care Provider] - Forms: ED Department Discharge, ED Return to Work/School Form Additional Instructions: Continue taking the antibiotic as prescribed for the dental infections. Call and make an appointment to see a dentist for definitive treatment. Continue taking Tylenol and ibuprofen in alternating fashion for pain. Suggest going home and finding a dark room to sleep in with no distractions. Can apply cold compresses to the head as well. Follow-up with your primary care provider as needed for further evaluation. Return to the ED for any new or worsening symptoms. No driving this evening since receiving a sedative medication.
== END 2017-08-06 19:10 | disposition home or self-care (01) ==
LOC: JD.ED 16:30
DX: G43.909 Migraine, unspecified, not intractable, without status migrainosus (principal)
CPT/HCPCS: 96372; 99284; A9270; J1200; J1630; J1885

== ENCOUNTER 2017-10-03 10:40 | Emergency (ER) | payer MEDICAID ==
[2017-10-03 10:51] VITALS: BP 114/68
--- NOTE | 2017-10-03 11:23 | EDM.PDOC ---
ED HPI GENERAL MEDICAL PROBLEM - General Chief Complaint: Upper Extremity Injury/Pain Stated Complaint: L ARM INJURY Time Seen by Provider: 10/03/17 11:13 Source of Information: Reports: Patient History Limitations: Reports: No Limitations - History of Present Illness INITIAL COMMENTS - FREE TEXT/NARRATIVE: 37-year-old female presents for evaluation and treatment of injuries from slipping on the ice. Patient reports around midnight she slipped on ice. She states that she landed on an outstretched hand. She states that her hand bent backwards and she hit her elbow as well. She states that her back hit a satellite dish. She is unsure if she's had any head trauma. She has been able to bear weight. Currently complaining of pain to the right knee, left wrist, left elbow and low back. No nausea or vomiting. No headaches. Reports she's been taking Tylenol with no relief. Left Shoulder Pain Score (Numeric/FACES): 10 - Related Data Allergies Allergy/AdvReac Type Severity Reaction Status Date / Time No Known Allergies Allergy Verified 10/03/17 10:45 Home Meds: Home Meds Omeprazole 40 mg PO BID 07/27/15 [History] Albuterol [Ventolin HFA] 2 puff INH Q4H PRN 02/26/16 [History] Zolpidem [Ambien] 5 mg PO BEDTIME PRN 02/26/16 [History] traZODone 100 mg PO DAILY 10/03/17 [History] Past Medical History HEENT History: Reports: Allergic Rhinitis, Impaired Vision Cardiovascular History: Reports: Other (See Below) Other Cardiovascular History: heart palpitations Respiratory History: Reports: Asthma Gastrointestinal History: Reports: Colon Polyp, GERD, 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: 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, Musculoskeletal History: Reports: Back Pain, Chronic Other Musculoskeletal History: 4 back surgeries Neurological History: Reports: Migraines Psychiatric History: Reports: Other (See Below) Other Dermatologic History: eczema - Past Surgical History Female Surgical History: Reports: Hysterectomy Neurological Surgical History: Reports: Lumbar Spine Social & Family History - Family History Family Medical History: Noncontributory - Tobacco Use Smoking Status *Q: Current Every Day Smoker Years of Tobacco use: 15 Packs/Tins Daily: 0.2 Used Tobacco, but Quit: Yes Month Tobacco Last Used: unknown Second Hand Smoke Exposure: No - Caffeine Use Caffeine Use: Reports: Tea - Alcohol Use Days Per Week of Alcohol Use: 0 Number of Drinks Per Day: 0 Total Drinks Per Week: 0 - Recreational Drug Use Recreational Drug Use: No Drug Use in Last 12 Months: No - Living Situation & Occupation Living situation: Reports: , with Family Occupation: Unemployed Review of Systems - Review of Systems Review Of Systems: See Below Nose: Denies: Epistaxis Mouth/Throat: Denies: Loose Teeth Respiratory: Denies: Shortness of Breath Cardiovascular: Denies: Chest Pain GI/Abdominal: Denies: Abdominal Pain, Nausea, Vomiting Musculoskeletal: Reports: Neck Pain, Arm Pain (left elbow, left shoulder), Joint Pain (right knee) Neurological: Reports: Difficulty Walking. Denies: Headache, Syncope (unsure) ED EXAM, GENERAL - Physical Exam Exam: See Below Exam Limited By: No Limitations General Appearance: Alert, WD/WN, Mild Distress Eye Exam: Bilateral Eye: EOMI, Normal Inspection Ears: Normal External Exam Nose: Normal Inspection Throat/Mouth: Normal Inspection, Normal Oropharynx, Normal Voice, No Airway Compromise Neck: Normal Inspection, Supple, Non-Tender, Full Range of Motion Respiratory/Chest: No Respiratory Distress, Lungs Clear, Normal Breath Sounds Cardiovascular: Normal Peripheral Pulses, Regular Rate, Rhythm, No Murmur Peripheral Pulses: 2+: Radial (L), Radial (R), Posterior Tibial (L), Posterior Tibial (R), Dorsalis Pedis (L), Dorsalis Pedis (R) GI/Abdominal: Normal Bowel Sounds, Soft, Non-Tender Back Exam: Normal Inspection, Vertebral Tenderness (L3/L5), Other (scar from previous back surgery) Extremities: Normal Inspection, Normal Capillary Refill, Other (tenderness to palpation to the right knee, left wrsit and left elbow; no snuff bow tenderness , no tenderness to the left shoulder; seems to exaggerate symptoms). No: Joint Swelling Neurological: Alert, Oriented, Normal Cognition, Normal Gait Psychiatric: Normal Affect, Normal Mood Skin Exam: Warm, Dry, Normal Color. No: Ecchymosis, Wound/Incision Course - Vital Signs Last Recorded V/S: Last Vital Signs Temp 36.0 C 10/03/17 10:48 Pulse 88 10/03/17 10:48 Resp 18 10/03/17 10:48 BP 114/68 10/03/17 10:48 Pulse Ox 98 10/03/17 10:48 - Radiology Interpretation Free Text/Narrative:: Left elbow: Four views of left elbow were obtained. Comparison: Previous left elbow study of 06/30/12. Joint spaces are preserved. Small calcifications are noted off the coronoid process. These are well-corticated and may represent old injury but is an interval change from previous study. No joint effusion is seen. No acute fracture or other abnormality is identified. Impression: 1. Findings off the coronoid process as noted above felt to be old. 2. Nothing acute is appreciated on four-view left elbow study Right knee: Four views of the right knee were obtained. Comparison: Previous right knee exam of 06/05/15. Minimal medial joint space narrowing is seen. Small osteophyte is noted off the lateral tibial margin. Spur noted off the superior patella at the attachment of the quadriceps tendon. No joint effusion is seen. No acute bony abnormality is identified. Impression: 1. Minimal degenerative change. Nothing acute seen on four-view right knee exam. Lumbar spine: AP, lateral and coned-down lateral views centered to the lumbosacral junction were obtained. Comparison: Prior MRI lumbar spine exam of 10/09/15. Interval surgery is identified at L5-S1 from prior MRI. Intervertebral disc fixation devices seen as well as transpedicle screws within L5 and S1. Other disc spaces are maintained. Minimal scattered endplate osteophytes are seen. Electrostimulating device with electrode seen within the region of the posterior thecal sac of the lower thoracic spine. Minimal scoliosis is noted. Pedicles as well as visualized transverse and spinous processes are intact. No abnormal subluxation is seen. Surgical clips are noted from prior cholecystectomy. Impression: 1. Previous surgery as noted above. Minimal degenerative change. No acute abnormality is appreciated on three-view lumbar spine study. Left wrist: Four views of the left wrist were obtained. Comparison: Prior left wrist exam of 05/29/17. Joint spaces are maintained. No fracture, dislocation or other bony abnormality is seen. Impression: 1. No abnormality is identified on left wrist exam. - Re-Assessments/Exams Free Text/Narrative Re-Assessment/Exam: 10/03/17 12:36 I reviewed the x-ray results with the patient. Soft tissue injury. Treatment is Tylenol, Motrin, rest and ice. I offered her note for work for a day But she declined. Discharge instructions as document. Departure - Departure Time of Disposition: 12:36 Disposition: Home, Self-Care 01 Condition: Fair Clinical Impression: Fall, Arm pain - Discharge Information Instructions: Shoulder Pain Referrals: PCP,None [Primary Care Provider] - Rosey Paris NP [Ordering Only Provider] - Forms: ED Department Discharge Additional Instructions: [id number] Tylenol or Motrin as needed for pain relief. Recommend using ice to the sore areas. He may also use heat if you desire. Expect to be sore for the next 7-10 days. The First 3 days will be the worse. If your symptoms persist beyond 10-14 days, follow-up with your primary care provider. Recommend Isatu Paris if you are in need of a new primary care provider. Call [phone] to schedule with her. Shoulder sling as needed for your discomfort. Please return to the ER if your symptoms change or worsen.
--- NOTE | 2017-10-03 14:15 | CR ---
Lumbar spine: AP, lateral and coned-down lateral views centered to the lumbosacral junction were obtained. Comparison: Prior MRI lumbar spine exam of 10/09/15. Interval surgery is identified at L5-S1 from prior MRI. Intervertebral disc fixation devices seen as well as transpedicle screws within L5 and S1. Other disc spaces are maintained. Minimal scattered endplate osteophytes are seen. Electrostimulating device with electrode seen within the region of the posterior thecal sac of the lower thoracic spine. Minimal scoliosis is noted. Pedicles as well as visualized transverse and spinous processes are intact. No abnormal subluxation is seen. Surgical clips are noted from prior cholecystectomy. Impression: 1. Previous surgery as noted above. Minimal degenerative change. No acute abnormality is appreciated on three-view lumbar spine study. Diagnostic code #2
--- NOTE | 2017-10-03 14:15 | CR ---
Right knee: Four views of the right knee were obtained. Comparison: Previous right knee exam of 06/05/15. Minimal medial joint space narrowing is seen. Small osteophyte is noted off the lateral tibial margin. Spur noted off the superior patella at the attachment of the quadriceps tendon. No joint effusion is seen. No acute bony abnormality is identified. Impression: 1. Minimal degenerative change. Nothing acute seen on four-view right knee exam. Diagnostic code #2
--- NOTE | 2017-10-03 14:15 | CR ---
Left wrist: Four views of the left wrist were obtained. Comparison: Prior left wrist exam of 05/29/17. Joint spaces are maintained. No fracture, dislocation or other bony abnormality is seen. Impression: 1. No abnormality is identified on left wrist exam. Diagnostic code #1
--- NOTE | 2017-10-03 14:15 | CR ---
Left elbow: Four views of left elbow were obtained. Comparison: Previous left elbow study of 06/30/12. Joint spaces are preserved. Small calcifications are noted off the coronoid process. These are well-corticated and may represent old injury but is an interval change from previous study. No joint effusion is seen. No acute fracture or other abnormality is identified. Impression: 1. Findings off the coronoid process as noted above felt to be old. 2. Nothing acute is appreciated on four-view left elbow study. Diagnostic code #2
== END 2017-10-03 12:44 | disposition home or self-care (01) ==
LOC: JD.ED 10:40
DX: M79.602 Pain in left arm (principal); J45.909 Unspecified asthma, uncomplicated; K21.9 Gastro-esophageal reflux disease without esophagitis; F17.210 Nicotine dependence, cigarettes, uncomplicated; W00.0XXA Fall on same level due to ice and snow, initial encounter
CPT/HCPCS: 72100; 72100-26; 73080-26-LT; 73080-LT; 73110-26-LT; 73110-LT; 73564-26-RT; 73564-RT; 99283

== ENCOUNTER 2017-12-19 22:35 | Emergency (ER) | payer MEDICAID ==
[2017-12-19 23:11] VITALS: BP 111/70
--- NOTE | 2017-12-19 23:22 | EDM.PDOC ---
ED HPI GENERAL MEDICAL PROBLEM - General Chief Complaint: Back Pain or Injury Stated Complaint: BACK PAIN Time Seen by Provider: 12/19/17 22:38 Source of Information: Reports: Patient History Limitations: Reports: No Limitations - History of Present Illness INITIAL COMMENTS - FREE TEXT/NARRATIVE: This is a 37-year-old female. She has a long history of low back problems including a fusion of her lower back she thinks L5-S1 about 2 years ago. About one year ago she had a nerve stimulator placed in the right lower back as well. She apparently fell in October and states she landed really hard and ever since that time her back has had increasing low back pain. She tried to check her stimulator tonight and there was no response. She spoke to an individual by the name of and she who wanted her to get some x-rays of her lower back to look at the fusion as well as the stimulator to see if any of the leads had come loose. So she comes to the ER for evaluation. She says the pain is in the lower back and it does not appear to significantly go down her legs. She sees Dr. Carrillo at [facility] for pain management. She denies any change in bowel or bladder function. 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) Other Treatments FIRESTOPPER INSTALLER: advil at 1830 Lower Back Pain Score (Numeric/FACES): 8 - Related Data Allergies Allergy/AdvReac Type Severity Reaction Status Date / Time No Known Allergies Allergy Verified 10/03/17 10:45 Home Meds: Home Meds Omeprazole 40 mg PO BID 07/27/15 [History] Albuterol [Ventolin HFA] 2 puff INH Q4H PRN 02/26/16 [History] Zolpidem [Ambien] 5 mg PO BEDTIME PRN 02/26/16 [History] traZODone 100 mg PO DAILY 10/03/17 [History] Orphenadrine [Norflex] 100 mg PO BID PRN #20 tab 12/20/17 [Rx] traMADol [Ultram] 50 mg PO Q6H PRN #20 tab 12/20/17 [Rx] Past Medical History HEENT History: Reports: Allergic Rhinitis, Impaired Vision Cardiovascular History: Reports: Other (See Below) Other Cardiovascular History: heart palpitations Respiratory History: Reports: Asthma Gastrointestinal History: Reports: Colon Polyp, GERD, PUD 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: 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, Musculoskeletal History: Reports: Back Pain, Chronic Other Musculoskeletal History: 4 back surgeries Neurological History: Reports: Migraines Psychiatric History: Reports: Anxiety Other Dermatologic History: eczema - Past Surgical History Female Surgical History: Reports: Hysterectomy Neurological Surgical History: Reports: Lumbar Spine Social & Family History - Family History Family Medical History: Noncontributory - Tobacco Use Smoking Status *Q: Current Every Day Smoker Years of Tobacco use: 6 Packs/Tins Daily: 0.5 Used Tobacco, but Quit: Yes Month/Year Tobacco Last Used: unknown Second Hand Smoke Exposure: No - Caffeine Use Caffeine Use: Reports: Soda - Alcohol Use Days Per Week of Alcohol Use: 0 Number of Drinks Per Day: 0 Total Drinks Per Week: 0 - Recreational Drug Use Recreational Drug Use: No Drug Use in Last 12 Months: No - Living Situation & Occupation Living situation: Reports: , with Family Occupation: Unemployed ED ROS GENERAL - Review of Systems Review Of Systems: See Below Constitutional: Denies: Fever, Chills HEENT: Reports: No Symptoms Respiratory: Reports: No Symptoms Cardiovascular: Reports: No Symptoms Endocrine: Reports: No Symptoms GI/Abdominal: Reports: No Symptoms : Reports: No Symptoms Musculoskeletal: Reports: Back Pain Skin: Reports: No Symptoms Neurological: Reports: Difficulty Walking Psychiatric: Reports: Anxiety Hematologic/Lymphatic: Reports: No Symptoms ED EXAM,LOWER BACK PAIN/INJURY - Physical Exam Exam: See Below Exam Limited By: No Limitations General Appearance: Alert, WD/WN, Moderate Distress Eye Exam: Bilateral Eye: Normal Inspection Ears: Normal External Exam Nose: Normal Inspection Throat/Mouth: Normal Inspection, Normal Lips, Normal Voice, No Airway Compromise Head: Normocephalic Neck: Supple Respiratory/Chest: No Respiratory Distress, Lungs Clear, Normal Breath Sounds Cardiovascular: Regular Rate, Rhythm, No Murmur Extremities: Other (Visualization of the lower back shows a midline surgical scar in the lower lumbar area, the nerve stimulator is in the right lower back area, palpation of that area seems to cause some discomfort, she is able to sit up for me though she does it very slowly and complains of pain, she is able to ambulate though she is very slow there is no obvious inflammation no obvious swelling noted in her lower back or over the stimulator) Neurological: Alert Psychiatric: Anxious Skin Exam: Warm, Dry Course - Vital Signs Last Recorded V/S: Last Vital Signs Temp 98.8 F 12/19/17 23:08 Pulse 80 12/19/17 23:08 Resp 20 12/19/17 23:08 BP 111/70 12/19/17 23:08 Pulse Ox 100 12/19/17 23:08 - Orders/Labs/Meds Orders: Active Orders 24 hr Category Date Time Status Lumbar Spine 2 or 3V [CR] Stat Exams 12/19/17 23:22 Taken Pelvis 1V or 2V [CR] Stat Exams 12/19/17 23:23 Taken Thoracic Spine 1V [CR] Stat Exams 12/20/17 00:00 Ordered HYDROmorphone [Dilaudid] Med 12/20/17 00:20 Once 1 mg IM ONETIME ONE Orphenadrine [Norflex] Med 12/20/17 00:21 Once 100 mg PO ONETIME ONE - Radiology Interpretation Free Text/Narrative:: X-rays of the pelvis lumbar spine and thoracic spine 1 view, shows that the spinal fusion is perfectly intact. It also shows that the wires from the nerve stimulator all the way up to the thoracic spine are intact and are not broken. - Re-Assessments/Exams Free Text/Narrative Re-Assessment/Exam: 12/20/17 00:22 I spoke to the patient regarding the x-ray results and the spinal fusion being intact and that the leads to the nerve stimulator are intact. I have encouraged her to follow up with the person who takes care of her nerve stimulator to see if they can figure out what is wrong with it and why it's not working. She needs to follow-up with Dr. Carrillo for reevaluation of her back symptoms. Departure - Departure Time of Disposition: 00:23 Disposition: Home, Self-Care 01 Condition: Fair Clinical Impression: Breakdown (mechanical) of other implanted electronic stimulator of nervous system, initial encounter Low back pain Qualifiers: Chronicity: chronic Back pain laterality: midline Sciatica presence: without sciatica Qualified Code(s): M54.5 - Low back pain; G89.29 - Other chronic pain - Discharge Information Prescriptions: Orphenadrine [Norflex] 100 mg PO BID PRN #20 tab PRN Reason: Spasms traMADol [Ultram] 50 mg PO Q6H PRN #20 tab PRN Reason: Pain Referrals: Dimitrios Key MD [Primary Care Provider] - Forms: ED Department Discharge Additional Instructions: Take the medications for the muscle spasms and the medication as needed for pain , follow up with Pamela regarding your nerve stimulator to see if they can figure out why it is not functioning, follow-up with Dr. Perdomo on Friday or as soon as possible for reevaluation of your back and you pain needs, return to the ER if needed - My Orders Last 24 Hours: My Active Orders 12/19/17 23:22 Lumbar Spine 2 or 3V [CR] Stat 12/19/17 23:23 Pelvis 1V or 2V [CR] Stat 12/20/17 00:00 Thoracic Spine 1V [CR] Stat 12/20/17 00:20 HYDROmorphone [Dilaudid] 1 mg IM ONETIME ONE 12/20/17 00:21 Orphenadrine [Norflex] 100 mg PO ONETIME ONE - Assessment/Plan Last 24 Hours: My Active Orders 12/19/17 23:22 Lumbar Spine 2 or 3V [CR] Stat 12/19/17 23:23 Pelvis 1V or 2V [CR] Stat 12/20/17 00:00 Thoracic Spine 1V [CR] Stat 12/20/17 00:20 HYDROmorphone [Dilaudid] 1 mg IM ONETIME ONE 12/20/17 00:21 Orphenadrine [Norflex] 100 mg PO ONETIME ONE
[2017-12-20] MEDS ORDERED: HYDROmorphone 1 MG/ML Syringe IM ONE (00:20)
[2017-12-20] MEDS ORDERED: Orphenadrine 100 MG Tab.ER PO ONE (00:21)
--- NOTE | 2017-12-21 12:53 | CR ---
Thoracic spine: AP view of the thoracic spine was obtained. Lower thoracic spine was included on lumbar spine study. No lateral view was obtained on this exam. Scoliosis is noted within the spine. Disc space narrowing is again seen throughout the lower thoracic spine. Electro-stimulating device is seen within the thoracic spine. Pedicles are intact. No paravertebral abnormalities are seen. Impression: 1. Scoliosis and electro-stimulating device. Disc space narrowing is noted within the lower thoracic spine. Diagnostic code #2
--- NOTE | 2017-12-21 12:53 | CR ---
Lumbar spine: AP, lateral and coned-down lateral views centered to the lumbosacral junction were obtained. Comparison: Prior lumbar spine exam of 10/03/17. Transpedicle screws and intervertebral disc fixation is seen at L5-S1. Mild disc space narrowing is noted within the lower thoracic spine. Mild disc space narrowing appears to be present at L1-L2 as an interval change from previous exam. Minimal scattered endplate osteophytes are noted. Slight scoliosis is noted. Electro-stimulating device ascends into the thoracic spine. Nothing acute is seen. Impression: 1. Previous surgery at L5-S1. 2. Mild degenerative change, minimal scoliosis and stable electro-stimulating device. Diagnostic code #2
--- NOTE | 2017-12-21 12:53 | CR ---
Pelvis: AP view of the pelvis was obtained. Comparison: No prior pelvis exam. Prior lumbar spine surgery is noted. Partially seen electro-stimulating device is also noted. Joint spaces within both hips are maintained. Sacroiliac joints are within normal limits. No acute fracture or other bony abnormality is identified. Impression: 1. Evidence of prior surgery within the lumbar spine. 2. AP pelvis study is otherwise unremarkable. Diagnostic code #2
== END 2017-12-20 00:41 | disposition home or self-care (01) ==
LOC: JD.ED 22:35 → SUPCPDRO 22:35 → JD.ED 12-20 00:41
DX: T85.118A Breakdown (mechanical) of other implanted electronic stimulator of nervous system, initial encounter (principal); M54.5 Low back pain; G89.29 Other chronic pain; J45.909 Unspecified asthma, uncomplicated; F17.210 Nicotine dependence, cigarettes, uncomplicated; K21.9 Gastro-esophageal reflux disease without esophagitis; Z79.899 Other long term (current) drug therapy; Z98.890 Other specified postprocedural states
CPT/HCPCS: 72020; 72100; 72170; 96372; 99283; A9270; J1170

== ENCOUNTER 2018-03-05 15:58 | Emergency (ER) | payer MEDICAID ==
[2018-03-05 16:15] VITALS: BP 125/86
[2018-03-05] MEDS ORDERED: Sodium Chloride 0.9% 10 ML Syringe FLUSH PRN (16:27)
[2018-03-05] MEDS ORDERED: Ketorolac 30 MG/ML SDV IVPUSH ONE (16:28)
[2018-03-05] MEDS ORDERED: Prochlorperazine 10 MG/2 ML SDV IVPUSH ONE (16:28)
[2018-03-05] MEDS ORDERED: diphenhydrAMINE 50 MG/ML SDV IVPUSH ONE (16:28)
--- NOTE | 2018-03-05 17:47 | EDM.PDOC ---
ED HPI GENERAL MEDICAL PROBLEM - General Chief Complaint: Headache Stated Complaint: HEADACHE Time Seen by Provider: 03/05/18 16:15 Source of Information: Reports: Patient History Limitations: Reports: No Limitations - History of Present Illness INITIAL COMMENTS - FREE TEXT/NARRATIVE: The patient presents with a headache. She said this stared yesterday but she took some advil and it went away. She woke up this morning with it and now it is worse. She has photophobia. She has nausea. She has a history of migraines. She has no fever, chills, cough, numbness or weakness. Onset: Gradual Duration: Day(s): (Yesterday) Location: Reports: Head Quality: Reports: Sharp Severity: Severe Improves with: Reports: None Worsens with: Reports: None Associated Symptoms: Reports: Headaches, Nausea/Vomiting. Denies: Confusion, Chest Pain, Cough, Fever/Chills, Shortness of Breath Headache Pain Score (Numeric/FACES): 10 - Related Data Allergies Allergy/AdvReac Type Severity Reaction Status Date / Time No Known Allergies Allergy Verified 10/03/17 10:45 Home Meds: Home Meds Omeprazole 40 mg PO BID 07/27/15 [History] Albuterol [Ventolin HFA] 2 puff INH Q4H PRN 02/26/16 [History] Zolpidem [Ambien] 5 mg PO BEDTIME PRN 02/26/16 [History] traZODone 100 mg PO DAILY 10/03/17 [History] Past Medical History HEENT History: Reports: Allergic Rhinitis, Impaired Vision Cardiovascular History: Reports: Other (See Below) Other Cardiovascular History: heart palpitations Respiratory History: Reports: Asthma Gastrointestinal History: Reports: Colon Polyp, GERD, PUD 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: 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, Musculoskeletal History: Reports: Back Pain, Chronic Other Musculoskeletal History: 4 back surgeries Neurological History: Reports: Migraines Psychiatric History: Reports: Anxiety Other Dermatologic History: eczema - Past Surgical History Female Surgical History: Reports: Hysterectomy Neurological Surgical History: Reports: Lumbar Spine Social & Family History - Family History Family Medical History: Noncontributory - Tobacco Use Smoking Status *Q: Current Every Day Smoker Years of Tobacco use: 1 Packs/Tins Daily: 0.3 - Caffeine Use Caffeine Use: Reports: None - Recreational Drug Use Recreational Drug Use: No - Living Situation & Occupation Living situation: Reports: , with Family Occupation: Unemployed ED ROS GENERAL - Review of Systems Review Of Systems: See Below Constitutional: Reports: No Symptoms HEENT: Reports: No Symptoms Respiratory: Reports: No Symptoms Cardiovascular: Reports: No Symptoms Endocrine: Reports: No Symptoms GI/Abdominal: Reports: Nausea. Denies: Abdominal Pain, Vomiting : Reports: No Symptoms Musculoskeletal: Reports: No Symptoms Skin: Reports: No Symptoms Neurological: Reports: Headache. Denies: Numbness, Weakness - Physical Exam Exam: See Below Exam Limited By: No Limitations General Appearance: Alert, No Apparent Distress Ears: Normal External Exam Nose: Normal Inspection Head Exam: Atraumatic, Normocephalic Neck: Normal Inspection Respiratory/Chest: No Respiratory Distress, Lungs Clear, Normal Breath Sounds Cardiovascular: Regular Rate, Rhythm, No Edema, No Murmur, Irregularly Irregular GI/Abdominal: Non-Tender, No Organomegaly, No Mass Neuro Exam (Abbreviated): Alert, Oriented, No Motor/Sensory Deficits Course - Vital Signs Last Recorded V/S: Last Vital Signs Temp 98.2 F 03/05/18 16:13 Pulse 78 03/05/18 16:13 Resp 18 03/05/18 16:13 BP 125/86 03/05/18 16:13 Pulse Ox 100 03/05/18 16:13 - Orders/Labs/Meds Orders: Active Orders 24 hr Category Date Time Status Peripheral IV Care [RC] . DIRECTED Care 03/05/18 16:28 Active Sodium Chloride 0.9% [Saline Flush] Med 03/05/18 16:27 Active 10 ml FLUSH ASDIRECTED PRN Peripheral IV Insertion Adult [OM.PC] Routine Oth 03/05/18 16:27 Ordered Medication Orders Sodium Chloride (Saline Flush) 10 ml FLUSH ASDIRECTED PRN PRN Reason: Keep Vein Open Last Admin: 03/05/18 16:46 Dose: 10 ml Meds: Medications Generic Name Dose Route Start Last Admin Trade Name Freq PRN Reason Stop Dose Admin Sodium Chloride 10 ml 03/05/18 16:27 03/05/18 16:46 Saline Flush FLUSH 10 ml ASDIRECTED PRN Administration Keep Vein Open Discontinued Medications Generic Name Dose Route Start Last Admin Trade Name Freq PRN Reason Stop Dose Admin Diphenhydramine HCl 50 mg 03/05/18 16:28 07/05/18 16:45 Benadryl IVPUSH 03/05/18 16:29 50 mg ONETIME ONE Administration Ketorolac Tromethamine 30 mg 03/05/18 16:28 03/05/18 16:46 Toradol IVPUSH 03/05/18 16:29 30 mg ONETIME ONE Administration Prochlorperazine Edisylate 10 mg 03/05/18 16:28 03/05/18 16:46 Compazine IVPUSH 03/05/18 16:29 10 mg ONETIME ONE Administration - Re-Assessments/Exams Free Text/Narrative Re-Assessment/Exam: 03/05/18 17:44 I ordered an IV saline lock, compazine 10gm IV, toradol 30mg IV, and benadryl 50mg IV. She feels better. I will discharge her home. Departure - Departure Time of Disposition: 17:45 Disposition: Home, Self-Care 01 Condition: Good Clinical Impression: Migraine Qualifiers: Migraine type: other Status migrainosus presence: without status migrainosus Intractability: not intractable Qualified Code(s): G43.809 - Other migraine, not intractable, without status migrainosus - Discharge Information Referrals: Rosey Paris, BURRER MARKER AXLE [Primary Care Provider] - Additional Instructions: Go home and rest in a dark quiet room. Please return if you are worse. - My Orders Last 24 Hours: My Active Orders 03/05/18 16:27 Sodium Chloride 0.9% [Saline Flush] 10 ml FLUSH ASDIRECTED PRN Peripheral IV Insertion Adult [OM.PC] Routine 03/05/18 16:28 Peripheral IV Care [RC] . DIRECTED - Assessment/Plan Last 24 Hours: My Active Orders 03/05/18 16:27 Sodium Chloride 0.9% [Saline Flush] 10 ml FLUSH ASDIRECTED PRN Peripheral IV Insertion Adult [OM.PC] Routine 03/05/18 16:28 Peripheral IV Care [RC] . DIRECTED
== END 2018-03-05 18:11 | disposition home or self-care (01) ==
LOC: JD.ED 15:58
DX: G43.809 Other migraine, not intractable, without status migrainosus (principal); J45.909 Unspecified asthma, uncomplicated; F17.210 Nicotine dependence, cigarettes, uncomplicated; Z79.899 Other long term (current) drug therapy
CPT/HCPCS: 96374; 96375; 99283; J0780; J1200; J1885; J7050

== ENCOUNTER 2019-08-29 15:21 | Emergency (ER) | payer SELFPAY ==
[2019-08-29] MEDS ORDERED: Proparacaine 0.5% Ophth Soln 15 ML Bottle EYERT ONE (15:45)
[2019-08-29] MEDS ORDERED: Sodium Chloride 0.9% 1,000 ML ONE (15:53)
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
[2019-08-29 16:38] VITALS: BP 124/90; PULSE 94
[2019-08-29] MEDS ORDERED: Fluorescein 1 MG Ophth Strip ONE (17:01)
[2019-08-29] MEDS ORDERED: Fluorescein 1 MG Ophth Strip EYERT ONE (17:02)
[2019-08-29] MEDS ORDERED: Sodium Chloride 0.9% 1,000 ML IRR STA (17:05)
[2019-08-29] MEDS ORDERED: Erythromycin Base 0.5% Ophth Oint 1 GM Tube EYERT ONE (17:45)
== END 2019-08-29 18:04 | disposition home or self-care (01) ==
LOC: JD.ED 15:21
DX: T26.61XA Corrosion of cornea and conjunctival sac, right eye, initial encounter (principal); J45.909 Unspecified asthma, uncomplicated; F17.210 Nicotine dependence, cigarettes, uncomplicated; X58.XXXA Exposure to other specified factors, initial encounter; Y99.0 Civilian activity done for income or pay
CPT/HCPCS: 99283; A9270

== ENCOUNTER 2020-05-14 16:21 | Emergency (ER) | payer BC ==
[2020-05-14 16:31] VITALS: BP 123/82; PULSE 107
[2020-05-14] MEDS ORDERED: methylPREDNISolone Sodium Succinate 125 MG/2 ML SDV IVPUSH ONE (16:53)
[2020-05-14] MEDS ORDERED: Famotidine 20 MG/2 ML SDV IVPUSH ONE (16:53)
[2020-05-14] MEDS ORDERED: diphenhydrAMINE 50 MG/ML SDV IVPUSH ONE (16:53)
[2020-05-14] MEDS ORDERED: Sodium Chloride 0.9% 1,000 ML IV ONE (16:53)
[2020-05-14] MEDS ORDERED: Sodium Chloride 0.9% 10 ML Syringe FLUSH PRN (16:53)
--- NOTE | 2020-05-14 17:15 | EDM.PDOC ---
ED HPI GENERAL MEDICAL PROBLEM - General Chief Complaint: Allergic Reaction Stated Complaint: BUG BITE/SOB Time Seen by Provider: 05/14/20 16:47 Source of Information: Reports: Patient, RN Notes Reviewed History Limitations: Reports: No Limitations - History of Present Illness INITIAL COMMENTS - FREE TEXT/NARRATIVE: Patient is a 39-year-old female who presents to the ED for evaluation of a bug bite on her left lateral arm. Patient notes that prior to arrival she was stung by an insect roughly 10 minutes before getting here. She states that this happened when she put her arm down on the seat of a pickup. She did grab the insect and put it in a container and brought it with her. She is not sure what type of bug this was. She does note that she has a history of bee sting allergy. She states that her arm swelled up quickly, and she is having some pain in the arm, and she is very scared due to the pain, and states that she was thinking she was having some difficulty swallowing and some shortness of breath. O2 sats are 98% on room air, pulse is 107 bpm. Respiratory rate is 30, but she does appear anxious and tearful. She did not take anything for medications prior to coming to the ER. She has not had any sick-like symptoms otherwise; to her/chills, cough/shortness of breath, nausea/vomiting/diarrhea. 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, Musculoskeletal History: Reports: Back Pain, Chronic Other Musculoskeletal History: 4 back surgeries Neurological History: Reports: Headaches, Chronic Psychiatric History: Reports: Anxiety, Other (See Below) Dermatologic History: Reports: Eczema Other Dermatologic History: eczema - Infectious Disease History Infectious Disease History: Reports: None - Past Surgical History HEENT Surgical History: Reports: Adenoidectomy, Tonsillectomy GI Surgical History: Reports: Cholecystectomy Female Surgical History: Reports: Hysterectomy, Other (See Below) Neurological Surgical History: Reports: Lumbar Spine, Other (See Below) Social & Family History - Family History Family Medical History: Noncontributory - Tobacco Use Smoking Status *Q: Current Every Day Smoker Years of Tobacco use: 3 Packs/Tins Daily: 0.1 - Caffeine Use Caffeine Use: Reports: None - Recreational Drug Use Recreational Drug Use: No - Living Situation & Occupation Living situation: Reports: , with Family (Son) Occupation: Employed ([employer]) ED ROS ALLERGIC REACTION - Review of Systems Review Of Systems: Comprehensive ROS is negative, except as noted in HPI. ED EXAM GENERAL NO PERIP PULSE - Physical Exam Exam: See Below Exam Limited By: No Limitations General Appearance: Alert, WD/WN, No Apparent Distress Eye Exam: Bilateral Eye: EOMI, Normal Inspection, PERRL Respiratory/Chest: No Respiratory Distress, Lungs Clear, Normal Breath Sounds, No Accessory Muscle Use, Chest Non-Tender Cardiovascular: Normal Peripheral Pulses, Regular Rate, Rhythm, No Murmur GI/Abdominal: Normal Bowel Sounds, Soft, Non-Tender, No Distention, No Mass Extremities: Normal Inspection, Normal Capillary Refill Neurological: Alert, Oriented, Normal Cognition, No Motor/Sensory Deficits Psychiatric: Normal Affect, Normal Mood Skin Exam: Warm, Dry, Intact, Normal Color, No Rash, Other (Is an area on the patient's left lateral arm, the does appear to be erythematous, not overly swollen there is a central punctate lesion that would be correlated to of with a bug bite. However the patient has multiple tattoos and is very hard to discern what is actually there.) Course - Vital Signs Last Recorded V/S: Last Vital Signs Temp 97 F 05/14/20 16:28 Pulse 107 H 05/14/20 16:28 Resp 30 H 05/14/20 16:28 BP 123/82 05/14/20 16:28 Pulse Ox 100 05/14/20 16:45 - Orders/Labs/Meds Orders: Active Orders 24 hr Category Date Time Status Peripheral IV Care [RC] . DIRECTED Care 05/14/20 16:53 Active Sodium Chloride 0.9% [Normal Saline] 1,000 ml Med 05/14/20 16:53 Active IV ONETIME Sodium Chloride 0.9% [Saline Flush] Med 05/14/20 16:53 Active 10 ml FLUSH ASDIRECTED PRN Peripheral IV Insertion Adult [OM.PC] Stat Oth 05/14/20 16:53 Ordered Medication Orders Sodium Chloride (Normal Saline) 1,000 mls @ 500 mls/hr IV ONETIME ONE Stop: 05/14/20 18:52 Last Admin: 05/14/20 17:14 Dose: 500 mls/hr Documented by: JEREMIAH Sodium Chloride (Saline Flush) 10 ml FLUSH ASDIRECTED PRN PRN Reason: Keep Vein Open Last Admin: 05/14/20 17:15 Dose: 10 ml Documented by: JEREMIAH Meds: Medications Generic Name Dose Route Start Last Admin Trade Name Freq PRN Reason Stop Dose Admin Sodium Chloride 1,000 mls @ 500 mls/hr 05/14/20 16:53 05/14/20 17:14 Normal Saline IV 05/14/20 18:52 500 mls/hr ONETIME ONE Administration Sodium Chloride 10 ml 05/14/20 16:53 05/14/20 17:15 Saline Flush FLUSH 10 ml ASDIRECTED PRN Administration Keep Vein Open Discontinued Medications Generic Name Dose Route Start Last Admin Trade Name Freq PRN Reason Stop Dose Admin Diphenhydramine HCl 50 mg 05/14/20 16:53 05/14/20 17:16 Benadryl IVPUSH 05/14/20 16:54 50 mg ONETIME ONE Administration Famotidine 20 mg 05/14/20 16:53 05/14/20 17:17 Pepcid IVPUSH 05/14/20 16:54 20 mg ONETIME ONE Administration Methylprednisolone Sodium Succinate 125 mg 05/14/20 16:53 05/14/20 17:14 Solu-Medrol IVPUSH 05/14/20 16:54 125 mg ONETIME ONE Administration - Re-Assessments/Exams Free Text/Narrative Re-Assessment/Exam: 05/14/20 17:15 Patient presents to the ED for evaluation of her allergic reaction to an insect bite. She will have an IV placed with some fluids, along with IV meds for this allergic reaction. 05/14/20 18:05 Patient was reassessed at bedside, states she is feeling a little bit better. She is complaining still of some pain at the site of the bite. I will give her 30mg IV Toradol for this, and get her discharged home and do time. Departure - Departure Time of Disposition: 18:08 Disposition: Home, Self-Care 01 Condition: Good Clinical Impression: Insect bite Qualifiers: Encounter type: initial encounter Site of insect bite: forearm Laterality: left Qualified Code(s): S50.862A - Insect bite (nonvenomous) of left forearm, initial encounter; W57.XXXA - Bitten or stung by nonvenomous insect and other nonvenomous arthropods, initial encounter - Discharge Information *PRESCRIPTION DRUG MONITORING PROGRAM REVIEWED*: No *COPY OF PRESCRIPTION DRUG MONITORING REPORT IN PATIENT JHONY: No Instructions: Insect Bite, Adult, [id number] Referrals: PCP,None [Primary Care Provider] - Forms: ED Department Discharge Additional Instructions: You were evaluated in the ER today for your allergic reaction to this insect bite. You were given accommodation some IV fluids, IV medications, this seemed to relieve most of your symptoms. Going forward from here, you can take Benadryl, 25 mg every 6 hours as needed for further allergic type symptoms. You may take 6 mg ibuprofen every 6 hours as needed for further pain relief. Do not exceed 3200 mg ibuprofen in a 24-hour time span. Recommend you use ice packs to the area, to help provide further relief of swelling. There will likely be local irritation/inflammation for the next 2 days, but should get better over time. Please return to the ER at any time if your symptoms should change or worsen. Sepsis Event Note (ED) - Evaluation Sepsis Screening Result: No Definite Risk - Focused Exam Vital Signs: Vital Signs Temp Pulse Resp BP Pulse Ox 05/14/20 16:45 100 05/14/20 16:28 97 F 107 H 30 H 123/82 98 - My Orders Last 24 Hours: My Active Orders 05/14/20 16:53 Peripheral IV Care [RC] . DIRECTED Sodium Chloride 0.9% [Normal Saline] 1,000 ml IV ONETIME Sodium Chloride 0.9% [Saline Flush] 10 ml FLUSH ASDIRECTED PRN Peripheral IV Insertion Adult [OM.PC] Stat - Assessment/Plan Last 24 Hours: My Active Orders 05/14/20 16:53 Peripheral IV Care [RC] . DIRECTED Sodium Chloride 0.9% [Normal Saline] 1,000 ml IV ONETIME Sodium Chloride 0.9% [Saline Flush] 10 ml FLUSH ASDIRECTED PRN Peripheral IV Insertion Adult [OM.PC] Stat
[2020-05-14] MEDS ORDERED: Ketorolac 30 MG/ML SDV IVPUSH ONE (18:07)
== END 2020-05-14 18:26 | disposition home or self-care (01) ==
LOC: JD.ED 16:21
DX: S50.862A Insect bite (nonvenomous) of left forearm, initial encounter (principal); J45.909 Unspecified asthma, uncomplicated; F17.210 Nicotine dependence, cigarettes, uncomplicated; Z90.49 Acquired absence of other specified parts of digestive tract; Z90.710 Acquired absence of both cervix and uterus; Z91.030 Bee allergy status; W57.XXXA Bitten or stung by nonvenomous insect and other nonvenomous arthropods, initial encounter
CPT/HCPCS: 96361; 96374; 96375; 99282; J1200; J1885; J2930; J3490; J7030; 99283

== ENCOUNTER 2020-06-25 13:55 | Emergency (ER) | payer BC ==
[2020-06-25 14:04] VITALS: BP 116/73; PULSE 93
[2020-06-25] MEDS ORDERED: Ketorolac 60 MG/2 ML SDV IM ONE (14:10)
[2020-06-25] MEDS ORDERED: Cyclobenzaprine 10 MG Tab PO ONE (14:11)
--- NOTE | 2020-06-25 14:19 | EDM.PDOC ---
ED HPI GENERAL MEDICAL PROBLEM - General Chief Complaint: Upper Extremity Injury/Pain Stated Complaint: L SHOULDER INJURY Time Seen by Provider: 06/25/20 14:00 Source of Information: Reports: Patient, RN Notes Reviewed History Limitations: Reports: No Limitations - History of Present Illness INITIAL COMMENTS - FREE TEXT/NARRATIVE: Patient is a 40-year-old female presenting to the emergency department with complaints of left shoulder pain. Symptoms began on Friday and has been getting progressively worse since that time. She states on Friday she was doing quite a bit of heavy lifting at home. She was lifting heavy boxes over the level of her head repetitively. She denies any history of previous injury to this shoulder. She has been taking ibuprofen at home with little relief. Last dose was around 8:00 this morning. She does occasionally get shooting pains down her left arm as well as intermittent numbness and tingling in her left arm as well. Left Arm Pain Score (Numeric/FACES): 10 - Related Data Allergies Allergy/AdvReac Type Severity Reaction Status Date / Time bee pollen Allergy Swelling Verified 06/25/20 14:04 Home Meds: Home Meds Albuterol [Ventolin HFA] 2 puff INH Q4H PRN 02/26/16 [History] Cyclobenzaprine [Flexeril] 10 mg PO TID PRN #10 tab 06/25/20 [Rx] Naproxen [Naprosyn] 500 mg PO Q12HR 5 Days #10 tab 06/25/20 [Rx] Past Medical History HEENT History: Reports: Allergic Rhinitis, Impaired Vision Cardiovascular History: Reports: Other (See Below) Other Cardiovascular History: heart palpitations Respiratory History: Reports: Asthma Gastrointestinal History: Reports: Colon Polyp, GERD, PUD 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: 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, Musculoskeletal History: Reports: Back Pain, Chronic Other Musculoskeletal History: 4 back surgeries Neurological History: Reports: Headaches, Chronic Psychiatric History: Reports: Anxiety, Other (See Below) Dermatologic History: Reports: Eczema Other Dermatologic History: eczema - Infectious Disease History Infectious Disease History: Reports: None - Past Surgical History HEENT Surgical History: Reports: Adenoidectomy, Tonsillectomy GI Surgical History: Reports: Cholecystectomy Female Surgical History: Reports: Hysterectomy, Other (See Below) Neurological Surgical History: Reports: Lumbar Spine, Other (See Below) Social & Family History - Family History Family Medical History: Noncontributory - Tobacco Use Tobacco Use Status *Q: Current Every Day Tobacco User Years of Tobacco use: 8 Packs/Tins Daily: 0.2 - Caffeine Use Caffeine Use: Reports: None - Recreational Drug Use Recreational Drug Use: No - Living Situation & Occupation Living situation: Reports: , with Family (Son) Occupation: Employed ([employer]) Review of Systems - Review of Systems Review Of Systems: Comprehensive ROS is negative, except as noted in HPI. ED EXAM, GENERAL - Physical Exam Exam: See Below General Appearance: Alert, WD/WN, No Apparent Distress Course - Vital Signs Last Recorded V/S: Last Vital Signs Temp 97.7 F 06/25/20 14:02 Pulse 93 06/25/20 14:02 Resp 20 06/25/20 14:02 BP 116/73 06/25/20 14:02 Pulse Ox 100 06/25/20 14:02 - Orders/Labs/Meds Meds: Medications Discontinued Medications Generic Name Dose Route Start Last Admin Trade Name Freq PRN Reason Stop Dose Admin Cyclobenzaprine HCl 10 mg 06/25/20 14:11 06/25/20 14:54 Flexeril PO 06/25/20 14:12 10 mg ONETIME ONE Administration Ketorolac Tromethamine 60 mg 06/25/20 14:10 06/25/20 14:54 Toradol IM 06/25/20 14:11 60 mg ONETIME ONE Administration - Re-Assessments/Exams Free Text/Narrative Re-Assessment/Exam: Xray of the left shoulder showed to acute abnormalities. Discharge instructions as documented. Departure - Departure Time of Disposition: 15:20 Disposition: Home, Self-Care 01 Condition: Good Clinical Impression: Shoulder pain Qualifiers: Chronicity: acute Laterality: left Qualified Code(s): M25.512 - Pain in left shoulder - Discharge Information *PRESCRIPTION DRUG MONITORING PROGRAM REVIEWED*: No *COPY OF PRESCRIPTION DRUG MONITORING REPORT IN PATIENT JHONY: No Prescriptions: Cyclobenzaprine [Flexeril] 10 mg PO TID PRN #10 tab PRN Reason: Muscle Spasm Naproxen [Naprosyn] 500 mg PO Q12HR 5 Days #10 tab Instructions: Shoulder Pain, [id number] Referrals: PCP,None [Primary Care Provider] - Forms: ED Department Discharge Additional Instructions: You were seen in the emergency department today for left shoulder pain. X-rays were completed and found to be normal. While in the ER, you received an injection of Toradol, and Flexeril which is a muscle relaxer. This did improve your symptoms. You have been provided with a arm sling. This should only be worn for short periods of time to prevent frozen shoulder. He should remove it and do range of motion exercises to keep the muscles and ligaments loose. A prescription for Naprosyn for pain and inflammation as well as Flexeril to relax the muscles has been sent to [facility]. Take these medications as prescribed. You may alternate heat and ice to the shoulder as needed. If you are still experiencing significant pain by the end of the week, recommend follow-up in the clinic. Return to ER as needed. Sepsis Event Note (ED) - Evaluation Sepsis Screening Result: No Definite Risk
--- NOTE | 2020-06-29 13:23 | CR ---
PROCEDURE INFORMATION: Exam: XR Left Shoulder Exam date and time: 06/25/2020 2:34 PM Age: 40 years old Clinical indication: Pain; Shoulder; Left TECHNIQUE: Imaging protocol: XR Left shoulder. Views: 2 or more views. COMPARISON: No relevant prior studies available. FINDINGS: Bones/joints: Normal. Soft tissues: Normal. IMPRESSION: No acute findings. Thank you for allowing us to participate in the care of your patient. Dictated and Authenticated by: Haley Abreu MD 06/25/2020 3:42 PM Central Time ([place] & [place]) [facility]
== END 2020-06-25 15:46 | disposition home or self-care (01) ==
LOC: JD.ED 13:55
DX: M25.512 Pain in left shoulder (principal); J45.909 Unspecified asthma, uncomplicated; F17.210 Nicotine dependence, cigarettes, uncomplicated; Z91.030 Bee allergy status
CPT/HCPCS: 73030; 96372; 99283; A9270; J1885

== ENCOUNTER 2020-07-08 07:43 | Emergency (ER) | payer BC ==
--- NOTE | 2020-07-08 08:27 | EDM.PDOC ---
ED HPI GENERAL MEDICAL PROBLEM - General Chief Complaint: Respiratory Problem Stated Complaint: SOB/COUGH Time Seen by Provider: 07/08/20 08:17 Source of Information: Reports: Patient, RN Notes Reviewed - History of Present Illness INITIAL COMMENTS - FREE TEXT/NARRATIVE: 40 yr old female with onset of cough 2 to 3 days ago, has become much worse yesterday and today. Dry, nonproductive. Chills, no definite fever. 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 Does wear a mask at work. Feels short of breath. Hx asthma. Shoulder Pain Score (Numeric/FACES): 8 - Related Data Allergies Allergy/AdvReac Type Severity Reaction Status Date / Time bee pollen Allergy Swelling Verified 06/25/20 14:04 Home Meds: Home Meds Albuterol [Ventolin HFA] 2 puff INH Q4H PRN 02/26/16 [History] Cyclobenzaprine [Flexeril] 10 mg PO TID PRN #10 tab 06/25/20 [Rx] Naproxen [Naprosyn] 500 mg PO Q12HR 5 Days #10 tab 06/25/20 [Rx] Acetaminophen/Codeine [Tylenol with Codeine No.3 300MG/30MG] 1 tab PO Q4H PRN #20 tab 07/08/20 [Rx] Past Medical History HEENT History: Reports: Allergic Rhinitis, Impaired Vision Cardiovascular History: Reports: Other (See Below) Other Cardiovascular History: heart palpitations Respiratory History: Reports: Asthma Gastrointestinal History: Reports: Colon Polyp, GERD, PUD 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, Musculoskeletal History: Reports: Back Pain, Chronic Other Musculoskeletal History: 4 back surgeries Neurological History: Reports: Headaches, Chronic Psychiatric History: Reports: Anxiety, Other (See Below) Dermatologic History: Reports: Eczema Other Dermatologic History: eczema - Infectious Disease History Infectious Disease History: Reports: None - Past Surgical History HEENT Surgical History: Reports: Adenoidectomy, Tonsillectomy GI Surgical History: Reports: Cholecystectomy Female Surgical History: Reports: Hysterectomy, Other (See Below) Neurological Surgical History: Reports: Lumbar Spine, Other (See Below) Social & Family History - Family History Family Medical History: Noncontributory - Caffeine Use Caffeine Use: Reports: None - Living Situation & Occupation Living situation: Reports: , with Family (Son) Occupation: Employed ([employer]) ED ROS GENERAL - Review of Systems Review Of Systems: See Below Constitutional: Reports: Chills. Denies: Fever HEENT: Reports: Rhinitis. Denies: Throat Pain Respiratory: Reports: Shortness of Breath, Cough Cardiovascular: Denies: Chest Pain GI/Abdominal: Denies: Abdominal Pain, Diarrhea, Vomiting Musculoskeletal: Reports: Other (generalized achiness) Skin: Reports: No Symptoms Neurological: Reports: Headache ED EXAM, GENERAL - Physical Exam Exam: See Below General Appearance: Alert, Moderate Distress, Other (frequent nonprod cough) Eye Exam: Bilateral Eye: PERRL Head: Atraumatic Neck: Supple Respiratory/Chest: Wheezing (mild). No: Rhonchi Cardiovascular: Regular Rate, Rhythm Extremities: No: Pedal Edema, Leg Pain Neurological: Alert, Oriented, No Motor/Sensory Deficits Skin Exam: Warm, Dry, Normal Color #1 Interpretation EKG Date: 07/08/20 Rhythm: NSR [place]: Normal P-Wave: Present QRS: Normal ST-T: Normal Course - Vital Signs Last Recorded V/S: Last Vital Signs Temp 98.0 F 07/08/20 08:03 Pulse 88 07/08/20 09:30 Resp 16 07/08/20 09:30 BP 128/80 07/08/20 09:30 Pulse Ox 99 07/08/20 09:30 - Orders/Labs/Meds Orders: Active Orders 24 hr Category Date Time Status Chest 1V Frontal [CR] Stat Exams 07/08/20 08:20 Taken CORONAVIRUS COVID-19 PCR [facility] Stat Lab 07/08/20 09:45 Received - Re-Assessments/Exams Free Text/Narrative Re-Assessment/Exam: 07/08/20 10:17 CXR nl, covid screen done to send to state. Departure - Departure Time of Disposition: 08:57 Disposition: Home, Self-Care 01 Clinical Impression: Bronchitis, Viral URI with cough - Discharge Information Prescriptions: Acetaminophen/Codeine [Tylenol with Codeine No.3 300MG/30MG] 1 tab PO Q4H PRN #20 tab PRN Reason: severe cough or discomfort Instructions: Shortness of Breath, Adult Referrals: PCP,None [Primary Care Provider] - Forms: ED Department Discharge Additional Instructions: Unfortunately your symptoms are strongly suggestive for covid infection. This is a virus, antibiotics will not help at this point. Your CXR is clear, there is no evidence of pneumonia at this time. Your oxygen readings are running at 99 to 100 %. Rest, self isolate until you get results of the covid screen. We will call you when those results become available. Tylenol q 6 to 8 hr as needed or tylenol with codeine if needed for severe cough or discomfort. Prescription has been sent electronically to [facility] on [address]. They are open this morning until noon or possible [address] PM[address] have a drive through so you don't have to go in. Return to ED for severe difficulty breathing or otherwise as needed. Sepsis Event Note (ED) - Evaluation Sepsis Screening Result: No Definite Risk - Focused Exam Vital Signs: Vital Signs Temp Pulse Resp BP Pulse Ox 07/08/20 09:30 88 16 128/80 99 07/08/20 08:03 98.0 F 97 22 H 116/85 97 - My Orders Last 24 Hours: My Active Orders 07/08/20 08:20 Chest 1V Frontal [CR] Stat 07/08/20 09:45 CORONAVIRUS COVID-19 PCR [facility] Stat - Assessment/Plan Last 24 Hours: My Active Orders 07/08/20 08:20 Chest 1V Frontal [CR] Stat 07/08/20 09:45 CORONAVIRUS COVID-19 PCR [facility] Stat
[2020-07-08 09:38] VITALS: BP 128/80; PULSE 88
--- NOTE | 2020-07-10 10:27 | CR ---
PROCEDURE INFORMATION: Exam: XR Chest, 1 View Exam date and time: 07/08/2020 8:08 AM Age: 40 years old Clinical indication: Cough and dyspnea TECHNIQUE: Imaging protocol: XR of the chest Views: 1 view. COMPARISON: DX Chest 2V 07/27/2015 10:51 PM FINDINGS: Lungs: The lungs are normally expanded and clear. Pleural space: Normal. Heart/Mediastinum: Normal heart and cardiomediastinal silhouette. Vasculature: Normal pulmonary vessel caliber. Normal aorta. Bones/joints: The bones are intact. IMPRESSION: No acute disease or suspicious finding. Thank you for allowing us to participate in the care of your patient. Dictated and Authenticated by: Badlo Carranza MD 07/08/2020 10:35 AM Central Time ([place] & [place]) [facility]
== END 2020-07-08 09:36 | disposition home or self-care (01) ==
LOC: JD.ED 07:43
DX: J40 Bronchitis, not specified as acute or chronic (principal); J06.9 Acute upper respiratory infection, unspecified; Z20.828 Contact with and (suspected) exposure to other viral communicable diseases; Z91.030 Bee allergy status
CPT/HCPCS: 71045; 71045-26; 93010; 99283; 99285-25; U0002

== ENCOUNTER 2020-11-12 16:26 | Emergency (ER) | payer BC, MEDICAID ==
[2020-11-12] MEDS ORDERED: Ketorolac 30 MG/ML SDV IM ONE (17:25)
[2020-11-12] MEDS: Lidocaine 1% with EPINEPHrine 1:100,000 10 ML MDV INJECT ONE ×2 (17:34→18:55)
--- NOTE | 2020-11-12 17:34 | EDM.PDOC ---
ED HPI GENERAL MEDICAL PROBLEM - General Chief Complaint: Skin Complaint Stated Complaint: FB STUCK IN R ARM Time Seen by Provider: 11/12/20 17:00 Source of Information: Reports: Patient, RN Notes Reviewed History Limitations: Reports: No Limitations - History of Present Illness INITIAL COMMENTS - FREE TEXT/NARRATIVE: Patient is a 40-year-old female who presents to the ED for a foreign body in her right forearm. Patient notes she was cleaning her house yesterday, when she got a sliver of particle board stuck within her right forearm, she states she was able to get most of this out however she still feels a piece within her right medial forearm. She notes is very painful to the touch, there is some redness around the area where she has been trying to extract this herself at home. She is having no fevers or chills, cough or shortness of breath, no other sick-like symptoms. She does complain of some sharp shooting pains into her fingers at times. She did not take any sort of medications for pain management at home. She states she is also been using a heat pack to the area to see if this helps and nothing seems to be working. Right Lower Arm Pain Score (Numeric/FACES): 7 - Related Data Allergies Allergy/AdvReac Type Severity Reaction Status Date / Time bee pollen Allergy Swelling Verified 11/12/20 16:52 Home Meds: Home Meds Albuterol [Ventolin HFA] 2 puff INH Q4H PRN 02/26/16 [History] cephALEXin [Cephalexin] 500 mg PO BID 7 Days #14 capsule 11/12/20 [Rx] Past Medical History HEENT History: Reports: Allergic Rhinitis, Impaired Vision Cardiovascular History: Reports: Other (See Below) Other Cardiovascular History: heart palpitations Respiratory History: Reports: Asthma Gastrointestinal History: Reports: Colon Polyp, GERD, PUD RN ACUTE CARE History: Reports: 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, Musculoskeletal History: Reports: Back Pain, Chronic Other Musculoskeletal History: 4 back surgeries Neurological History: Reports: Headaches, Chronic Psychiatric History: Reports: Anxiety, Other (See Below) Dermatologic History: Reports: Eczema Other Dermatologic History: eczema - Infectious Disease History Infectious Disease History: Reports: None - Past Surgical History HEENT Surgical History: Reports: Adenoidectomy, Tonsillectomy Other HEENT Surgeries/Procedures: adnodectomy GI Surgical History: Reports: Cholecystectomy Female Surgical History: Reports: Hysterectomy, Other (See Below) Other Female Surgeries/Procedures: uterus removal Neurological Surgical History: Reports: Lumbar Spine, Other (See Below) Musculoskeletal Surgical History: Reports: Other (See Below) Other Musculoskeletal Surgeries/Procedures:: back sx Social & Family History - Family History Family Medical History: No Pertinent Family History - Tobacco Use Tobacco Use Status *Q: Current Every Day Tobacco User Years of Tobacco use: 6 Packs/Tins Daily: 0.5 - Caffeine Use Caffeine Use: Reports: None - Recreational Drug Use Recreational Drug Use: No - Living Situation & Occupation Living situation: Reports: , with Family (Son) Occupation: Employed ([employer]) ED ROS GENERAL - Review of Systems Review Of Systems: Comprehensive ROS is negative, except as noted in HPI. ED EXAM, SKIN/RASH Exam: See Below Exam Limited By: No Limitations General Appearance: Alert, WD/WN, No Apparent Distress, Anxious (mild, generalized) Respiratory/Chest: No Respiratory Distress, Lungs Clear, Normal Breath Sounds, No Accessory Muscle Use, Chest Non-Tender Cardiovascular: Normal Peripheral Pulses, Regular Rate, Rhythm, No Edema Peripheral Pulses: 2+: Radial (L), Radial (R) Extremities: Normal Range of Motion Neurological: Alert, Oriented, Normal Cognition, No Motor/Sensory Deficits Psychiatric: Anxious Skin: Warm, Dry, Intact, No Rash, Erythema (Slight irritation hutchins around the area where she has been squeezing to try to get the sliver out. This area is on the right anterior forearm, on the medial aspect, midway up the forearm.), Other (There is an area that does feel as if there is a foreign body in the right inner forearm, area was marked with a skin marker so we did not lose this again.) Course - Vital Signs Last Recorded V/S: Last Vital Signs Temp 97.7 F 11/12/20 16:48 Pulse 93 11/12/20 16:48 Resp 16 11/12/20 16:48 BP 131/85 11/12/20 16:48 Pulse Ox 100 11/12/20 16:48 - Orders/Labs/Meds Orders: Active Orders 24 hr Category Date Time Status Notify Provider Consults [RC] ASDIRECTED Care 11/12/20 17:30 Ordered Consult to Physician [CONS] Stat Cons 11/12/20 17:30 Ordered Meds: Medications Discontinued Medications Generic Name Dose Route Start Last Admin Trade Name Brenda PRN Reason Stop Dose Admin Ketorolac Tromethamine 30 mg 11/12/20 17:25 11/12/20 17:34 Ketorolac 30 Mg/Ml Sdv IM 11/12/20 17:26 30 mg ONETIME ONE Administration Lidocaine/Epinephrine 10 ml 11/12/20 17:29 11/12/20 17:34 Lidocaine 1% With Epinephrine 1:100,000 10 Ml Mdv INJECT 11/12/20 17:30 10 ml ONETIME ONE Administration - Re-Assessments/Exams Free Text/Narrative Re-Assessment/Exam: 11/12/20 17:34 Patient comes to the ER for foreign body removal of her right forearm. The material in question was identified and marked with a skin marker however this does feel somewhat deeper than I am comfortable trying to extract in the ER I have consulted Dr. Trinidad our general surgeon application systems administrator, and she will come in to evaluate the patient for removal. 11/12/20 18:10 Dr. Trinidad did come into evaluate the patient and she states that the patient will need to follow up in clinic for removal. Pt verbalized understanding. Departure - Departure Time of Disposition: 18:11 Disposition: Home, Self-Care 01 Condition: Good Clinical Impression: Foreign body in soft tissue - Discharge Information *PRESCRIPTION DRUG MONITORING PROGRAM REVIEWED*: No *COPY OF PRESCRIPTION DRUG MONITORING REPORT IN PATIENT JHONY: No Referrals: PCP,None [Primary Care Provider] - Forms: ED Department Discharge Additional Instructions: You were evaluated in the ER today for a foreign body within your right forearm. Your case was discussed with our surgeon on-call, she did evaluate you in the ER, and she recommends doing a short time of observation before she goes in to remove this to allow your body time to encapsulate this to make it easier to remove. You have been given a prescription for cephalexin, you may pick this up at your pharmacy tomorrow and take as directed. please use 500 mg Tylenol or 600 mg ibuprofen every 6 hours as needed for further pain relief do not exceed 4000 mg Tylenol or 3200 mg ibuprofen every [address] Trinidad's office at [phone] to obtain an appointment after the antibiotics have been given time to work. This will likely be within 1 to 2 weeks so she can get this splinter removed from your forearm. Please return to the ER at any time if symptoms change or worsen. Sepsis Event Note (ED) - Evaluation Sepsis Screening Result: No Definite Risk - Focused Exam Vital Signs: Vital Signs Temp Pulse Resp BP Pulse Ox 11/12/20 16:48 97.7 F 93 16 131/85 100 - My Orders Last 24 Hours: My Active Orders 11/12/20 17:30 Notify Provider Consults [RC] ASDIRECTED Consult to Physician [CONS] Stat - Assessment/Plan Last 24 Hours: My Active Orders 11/12/20 17:30 Notify Provider Consults [RC] ASDIRECTED Consult to Physician [CONS] Stat
[2020-11-12 18:54] VITALS: BP 128/80; PULSE 84
--- NOTE | 2020-11-12 19:18 | PCM.CONS ---
H&P History of Present Illness - General Date of Service: 11/12/20 Admit Problem/Dx: foreign body in right arm Source of Information: Patient, Provider History Limitations: Reports: No Limitations - History of Present Illness Initial Comments - Free Text/Narative: The patient is a 40 y/o lady who presents after sustaining an injury at home. She reports a large splinter of wood went into her forearm while she was cleaning. This occurred sometime within the last 3 days. She states she used a "splinter remover" tool to try and remove it, but some of the foreign body remains. She reports this is causing significant pain. Right Lower Arm Pain Score (Numeric/FACES): 7 - Related Data Allergies/Adverse Reactions: Allergies Allergy/AdvReac Type Severity Reaction Status Date / Time bee pollen Allergy Swelling Verified 11/12/20 16:52 Home Medications: Home Meds Albuterol [Ventolin HFA] 2 puff INH Q4H PRN 02/26/16 [History] cephALEXin [Cephalexin] 500 mg PO BID 7 Days #14 capsule 11/12/20 [Rx] Past Medical History HEENT History: Reports: Allergic Rhinitis, Impaired Vision Cardiovascular History: Reports: Other (See Below) Other Cardiovascular History: heart palpitations Respiratory History: Reports: Asthma Gastrointestinal History: Reports: Colon Polyp, GERD, PUD 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: Reports: 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, Musculoskeletal History: Reports: Back Pain, Chronic Other Musculoskeletal History: 4 back surgeries Neurological History: Reports: Headaches, Chronic Psychiatric History: Reports: Anxiety, Other (See Below) Dermatologic History: Reports: Eczema Other Dermatologic History: eczema - Infectious Disease History Infectious Disease History: Reports: None - Past Surgical History HEENT Surgical History: Reports: Adenoidectomy, Tonsillectomy Other HEENT Surgeries/Procedures: adnodectomy GI Surgical History: Reports: Cholecystectomy Female Surgical History: Reports: Hysterectomy, Other (See Below) Other Female Surgeries/Procedures: uterus removal Neurological Surgical History: Reports: Lumbar Spine, Other (See Below) Musculoskeletal Surgical History: Reports: Other (See Below) Other Musculoskeletal Surgeries/Procedures:: back sx Social & Family History - Family History Cardiac: Reports: Hypertension Respiratory: Reports: Asthma Oncologic: Reports: Breast - Tobacco Use Tobacco Use Status *Q: Current Every Day Tobacco User Years of Tobacco use: 6 Packs/Tins Daily: 0.5 - Caffeine Use Caffeine Use: Reports: None - Recreational Drug Use Recreational Drug Use: No - Living Situation & Occupation Living situation: Reports: , with Family (Son) Occupation: Employed ([employer]) H&P Review of Systems - Review of Systems: Review Of Systems: See Below General: Reports: No Symptoms HEENT: Reports: No Symptoms Pulmonary: Reports: No Symptoms Cardiovascular: Reports: No Symptoms Gastrointestinal: Reports: No Symptoms Genitourinary: Reports: No Symptoms Musculoskeletal: Reports: No Symptoms Skin: Reports: Erythema (at area of foreign body), Other (small cut on the right volar forearm) Neurological: Reports: No Symptoms Hematologic/Lymphatic: Reports: No Symptoms Exam - Exam Exam: See Below - Vital Signs Vital Signs: Last Vital Signs Temp 36.5 C 11/12/20 16:48 Pulse 84 11/12/20 18:35 Resp 16 11/12/20 18:35 BP 128/80 11/12/20 18:35 Pulse Ox 99 11/12/20 18:35 - Exam Quality Assessment: No: Supplemental Oxygen General: Alert, Oriented HEENT: Conjunctiva Clear, EOMI Neck: Supple Lungs: Normal Respiratory Effort GI/Abdominal Exam: No Distention Extremities: Other (right forearm with 2.5cm palpable foreign body below surface of the skin ) Skin: Other (mild erythema around the area of the foreign body) Sepsis Event Note - Evaluation Sepsis Screening Result: No Definite Risk - Focused Exam Vital Signs: Vital Signs Temp Pulse Resp BP Pulse Ox 11/12/20 18:35 84 16 128/80 99 11/12/20 16:48 36.5 C 93 16 131/85 100 Consult PN Assessment/Plan Procedures: Procedures AIRWAY INHALATION TREATMENT (07/27/15) AQUATIC THERAPY/EXERCISES (04/15/16) ASSAY CARBOXYHB QUANT (07/27/15) ASSAY OF AMYLASE (11/02/14) ASSAY OF LIPASE (12/05/16) ASSAY OF MAGNESIUM (07/27/15) C-REACTIVE PROTEIN (04/18/17) CHEST X-RAY 2VW FRONTAL&LATL (07/27/15) COMPLETE CBC AUTOMATED (04/23/14) COMPLETE CBC W/AUTO DIFF WBC (12/05/16) COMPREHEN METABOLIC PANEL (12/05/16) COMPUTER DX MAMMOGRAM ADD-ON (04/12/15) CT ABD & PELV W/CONTRAST (12/05/16) CT ABD & PELVIS W/O CONTRAST (04/18/17) CT HEAD/BRAIN W/O DYE (03/25/19) CULTURE SCREEN ONLY (07/27/15) ECG MONIT/REPRT UP TO 48 HRS (02/26/16) ECG MONIT/REPRT UP TO 48 HRS (02/26/16) ECG/MONITORING AND ANALYSIS (08/30/15) ELECTROCARDIOGRAM TRACING (02/26/16) EMERGENCY DEPT VISIT (07/08/20) EMERGENCY DEPT VISIT (06/25/20) EMERGENCY DEPT VISIT (05/14/20) EMERGENCY DEPT VISIT (08/29/19) EMERGENCY DEPT VISIT (03/25/19) EMERGENCY DEPT VISIT (03/05/18) EMERGENCY DEPT VISIT (08/06/17) EMERGENCY DEPT VISIT (05/29/17) EMERGENCY DEPT VISIT (04/18/17) EMERGENCY DEPT VISIT (08/12/16) EMERGENCY DEPT VISIT (02/26/16) EMERGENCY DEPT VISIT (07/27/15) EMERGENCY DEPT VISIT (03/09/15) EMERGENCY DEPT VISIT (11/02/14) EVALUATE PT USE OF INHALER (07/27/15) HETEROPHILE ANTIBODY SCREEN (07/27/15) HYDRATE IV INFUSION ADD-ON (05/14/20) INFLUENZA ASSAY W/OPTIC (07/27/15) MANUAL THERAPY 1/> REGIONS (03/27/16) METABOLIC PANEL TOTAL CA (04/23/14) MRI JNT OF LWR EXTRE W/O DYE (06/20/15) MRI LUMBAR SPINE W/O DYE (10/09/15) NEUROMUSCULAR REEDUCATION (03/27/16) PROTHROMBIN TIME (12/05/16) PT EVALUATION (02/29/16) RBC SED RATE AUTOMATED (07/27/15) REMOTE 30 DAY ECG REV/REPORT (08/30/15) ROUTINE VENIPUNCTURE (04/18/17) SARS-COV-2 COVID-19 AMP PRB (07/08/20) STREP A AG IA (07/27/15) THER/PROPH/DIAG INJ IV PUSH (05/14/20) THER/PROPH/DIAG INJ SC/IM (06/25/20) THER/PROPH/DIAG IV INF INIT (07/15/16) THERAPEUTIC ACTIVITIES (03/27/16) THERAPEUTIC EXERCISES (03/27/16) THROMBOPLASTIN TIME PARTIAL (12/05/16) TISSUE EXAM BY PATHOLOGIST (04/20/14) TX/PRO/DX INJ NEW DRUG ADDON (05/14/20) TX/PRO/DX INJ SAME DRUG PRINCIPAL ACCOUNTS CLERK (04/18/17) ULTRASOUND BREAST COMPLETE (04/12/15) URINALYSIS AUTO W/SCOPE (04/18/17) URINE BACTERIA CULTURE (04/23/14) URINE TEST (07/27/15) X-RAY EXAM CHEST 1 VIEW (07/08/20) X-RAY EXAM KNEE 4 OR MORE (10/03/17) X-RAY EXAM L-S SPINE 2/3 VWS (12/19/17) X-RAY EXAM OF ANKLE (06/05/15) X-RAY EXAM OF ELBOW (10/03/17) X-RAY EXAM OF HAND (05/29/17) X-RAY EXAM OF KNEE 3 (06/05/15) X-RAY EXAM OF PELVIS (12/19/17) X-RAY EXAM OF SHOULDER (06/25/20) X-RAY EXAM OF SPINE 1 VIEW (12/19/17) X-RAY EXAM OF WRIST (10/03/17) (1) Foreign body in soft tissue SNOMED Code(s): 779756758, 698601747 Code(s): M79.5 - RESIDUAL FOREIGN BODY IN SOFT TISSUE Problem List Initiated/Reviewed/Updated: Yes Plan: 40 y/o lady with foreign body in superficial subcutaneous tissue of the right arm. - discussed with patient that the foreign body should remain for about 2 weeks for the surrounding tissues to cause reactive encapsulation. discussed that excision attempt at this time can cause bleeding and extensive dissection, and is not recommended. - home with p.o cephalexin - follow up in clinic in 2 weeks. Sierra Chau MD General surgery
== END 2020-11-12 18:35 | disposition home or self-care (01) ==
LOC: JD.ED 16:26
DX: S50.851A Superficial foreign body of right forearm, initial encounter (principal); J45.909 Unspecified asthma, uncomplicated; Z72.0 Tobacco use; Z91.030 Bee allergy status; W22.8XXA Striking against or struck by other objects, initial encounter; Y93.E5 Activity, floor mopping and cleaning; Y92.009 Unspecified place in unspecified non-institutional (private) residence as the place of occurrence of the external cause
CPT/HCPCS: 96372; 99283; J1885; 99284

== ENCOUNTER 2021-08-06 05:57 | Emergency (ER) | payer BC, MEDICAID ==
[2021-08-06 06:23] VITALS: BP 129/83; PULSE 90
--- NOTE | 2021-08-06 06:40 | EDM.PDOC ---
<Joseph Nolan - Last Filed: 08/06/21 06:36> ED HPI GENERAL MEDICAL PROBLEM - General Chief Complaint: Respiratory Problem Stated Complaint: SOB Time Seen by Provider: 08/06/21 06:36 Source of Information: Reports: Patient History Limitations: Reports: No Limitations - History of Present Illness INITIAL COMMENTS - FREE TEXT/NARRATIVE: Patient is a 41-year-old female with a past medical history of asthma and an autoimmune disease which she does not in the name of presents with a chief complaint of difficulty breathing. Symptoms started yesterday. She has associated sore throat, dry cough, body aches, fever, chills, fatigue/lethargy. She did not receive the Covid vaccine. She has tried to use her albuterol inhaler with little relief. Otherwise, she is not experiencing any vomiting, diarrhea. Denies any recent hospitalizations or antibiotic use. Patient has no lower extremity swelling, calf pain, chest pain, history of DVT or PE. No other interventions been performed prior to arrival. No known sick contacts. - Related Data Allergies Allergy/AdvReac Type Severity Reaction Status Date / Time bee pollen Allergy Swelling Verified 08/06/21 06:28 Home Meds: Home Meds . [No Known Home Meds] 08/06/21 [History] Past Medical History HEENT History: Reports: Allergic Rhinitis, Impaired Vision Cardiovascular History: Reports: Other (See Below) Other Cardiovascular History: heart palpitations Respiratory History: Reports: Asthma Gastrointestinal History: Reports: Colon Polyp, GERD, PUD SHAGGER History: Reports: 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, Musculoskeletal History: Reports: Back Pain, Chronic Other Musculoskeletal History: 4 back surgeries Neurological History: Reports: Headaches, Chronic Psychiatric History: Reports: Anxiety, Other (See Below) Dermatologic History: Reports: Eczema Other Dermatologic History: eczema - Infectious Disease History Infectious Disease History: Reports: None - Past Surgical History HEENT Surgical History: Reports: Adenoidectomy, Tonsillectomy Other HEENT Surgeries/Procedures: adnodectomy GI Surgical History: Reports: Cholecystectomy Female Surgical History: Reports: Hysterectomy, Other (See Below) Other Female Surgeries/Procedures: uterus removal Neurological Surgical History: Reports: Lumbar Spine, Other (See Below) Musculoskeletal Surgical History: Reports: Other (See Below) Other Musculoskeletal Surgeries/Procedures:: back sx Social & Family History - Family History Family Medical History: No Pertinent Family History Cardiac: Reports: Hypertension Respiratory: Reports: Asthma Oncologic: Reports: Breast - Tobacco Use Tobacco Use Status *Q: Current Every Day Tobacco User Years of Tobacco use: 2 Packs/Tins Daily: 0.5 - Caffeine Use Caffeine Use: Reports: None - Recreational Drug Use Recreational Drug Use: No - Living Situation & Occupation Living situation: Reports: , with Family (Son) Occupation: Employed ([employer] ED ROS GENERAL - Review of Systems Review Of Systems: See Below Constitutional: Reports: Fever, Chills Respiratory: Reports: Shortness of Breath, Cough. Denies: Sputum Cardiovascular: Denies: Chest Pain Endocrine: Reports: Fatigue GI/Abdominal: Denies: Abdominal Pain, Nausea Musculoskeletal: Reports: Muscle Pain. Denies: Neck Pain Neurological: Reports: Weakness. Denies: Numbness, Paresthesia Hematologic/Lymphatic: Denies: Easy Bleeding, Easy Bruising ED EXAM, GENERAL - Physical Exam Exam: See Below Free Text/Narrative:: I have reviewed the triage vital signs Const: Well nourished, well developed, appears stated age Eyes: Pupils Equal and reactive to light bilaterally, no conjunctival injection HENT: No signs of trauma or swelling, Neck supple without meningismus CV: Regular Rate Rhythm, Warm, well-perfused extremities RESP: Unlabored respiratory effort. There is no wheezing. Patient is speaking full sentences. GI: soft, non-tender, non-distended, no masses MSK: No gross deformities appreciated Skin: Warm, dry. 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 Sensation and motor function of extremities grossly intact. Psych: Appropriate mood and affect. Course - Re-Assessments/Exams Free Text/Narrative Re-Assessment/Exam: 08/06/21 06:39 Patient is a 41-year-old female presenting with symptoms consistent with COVID- 19. I have ordered laboratory studies, chest x-ray and Covid test. At present, she is not in respiratory distress or hypoxic. She is not requiring any supplemental oxygen or nebulizer treatments. She may be good candidate for antibiotic infusion given underlying autoimmune disease and asthma. She will be signed out to daytime attending Dr. Badillo at routine shift change. Departure - Departure Disposition: Home, Self-Care 01 Clinical Impression: Viral illness - Discharge Information Referrals: PCP,None [Primary Care Provider] - Lissa Mathis MD [Physician] - Forms: ED Department Discharge Additional Instructions: You were seen in the emergency room after developing shortness of breath, sore throat, a dry cough, fever, chills, body aches, fatigue, and lethargy yesterday. Work-up in the ER included several blood tests, a swab for the SARS-CoV-2 virus and influenza A + B viruses, and a chest x-ray. Your entire work-up was unremarkable. You do not have pneumonia. You are not anemic. Your swab for the SARS-CoV-2 virus and influenza A + B viruses returned negative. Based on your history, physical exam, and ER tests, you are most likely suffering from a viral illness, unlikely to be either COVID-19 or influenza. As discussed, it is possible to test negative for COVID-19 even when you have it, in the early days of the illness. For that reason, we recommend that you get retested in the next 2 or 3 days, at the COVID clinic. If your test returns positive, they can arrange for an infusion of monoclonal antibodies, if you qualify. Otherwise, we recommend that you stay adequately hydrated and get plenty of rest. Eat a bland diet as tolerated. As discussed, we recommend that you not take any [id number] cough or cold remedies, as they have been shown to be of no benefit, but do have side effects, such as an upset stomach. If any other problems, please do not hesitate to return to the ER. <Dimitrios Badillo - Last Filed: 08/06/21 09:22> Course - Vital Signs Last Recorded V/S: Last Vital Signs Temp 36.4 C 08/06/21 06:22 Pulse 90 08/06/21 06:22 Resp 20 08/06/21 06:22 BP 129/83 08/06/21 06:22 Pulse Ox 100 08/06/21 06:22 - Orders/Labs/Meds Labs: Laboratory Tests 08/06/21 08/06/21 08/06/21 Range/Units 06:20 06:50 06:50 WBC 11.69 H (3.98-10.04) K/mm3 RBC 4.26 (3.98-5.22) M/mm3 Hgb 12.8 (11.2-15.7) gm/dl Hct 39.8 (34.1-44.9) % MCV 93.4 D (79.4-94.8) fl MCH 30.0 (25.6-32.2) pg MCHC 32.2 (32.2-35.5) g/dl RDW Std Deviation 44.0 (36.4-46.3) fL Plt Count 265 (182-369) K/mm3 MPV 10.2 (9.4-12.3) fl Neut % (Auto) 68.5 (34.0-71.1) % Lymph % (Auto) 19.2 L (19.3-51.7) % [place] % (Auto) 9.7 (4.7-12.5) % Eos % (Auto) 2.1 (0.7-5.8) Baso % (Auto) 0.2 (0.1-1.2) % Neut # (Auto) 8.02 H (1.56-6.13) K/mm3 Lymph # (Auto) 2.25 (1.18-3.74) K/mm3 [place] # (Auto) 1.13 H (0.24-0.36) K/mm3 Eos # (Auto) 0.24 (0.04-0.36) K/mm3 Baso # (Auto) 0.02 (0.01-0.08) K/mm3 Sodium 138 (136-145) mEq/L Potassium 3.9 (3.5-5.1) mEq/L Chloride 105 (98-107) mEq/L Carbon Dioxide 23 (21-32) mEq/L Anion Gap 13.9 (5-15) BUN 11 (7-18) mg/dL Creatinine 1.0 (0.55-1.02) mg/dL Est Cr Clr Drug Dosing 76.59 mL/min Estimated GFR (MDRD) > 60 (>60) mL/min BUN/Creatinine Ratio 11.0 L (14-18) Glucose 104 H (70-99) mg/dL Calcium 8.3 L (8.5-10.1) mg/dL Total Bilirubin 0.1 L (0.2-1.0) mg/dL AST 9 L (15-37) U/L ALT 25 (14-59) U/L Alkaline Phosphatase 66 (46-116) U/L C-Reactive Protein < 0.2 (<1.0) mg/dL Total Protein 6.5 (6.4-8.2) g/dl Albumin 3.2 L (3.4-5.0) g/dl Globulin 3.3 gm/dL Albumin/Globulin Ratio 1.0 (1-2) Influenza Type A RNA Negative (NEGATIVE) Influenza Type B RNA Negative (NEGATIVE) SARS-CoV-2 RNA ([place]) Negative (NEGATIVE) - Re-Assessments/Exams Free Text/Narrative Re-Assessment/Exam: 08/06/21 09:[address] Nolan for change of shift. I agree with his history and physical examination as documented. Portable chest radiograph appears to be grossly normal. The cardiac silhouette is within normal limits. No pulmonary vascular congestion. No pleural effusions seen on this AP view. No focal infiltrate. No pneumothorax. A thoracic spinal stimulator is noted. Formal read per the Radiologist pending. The patient's CBC is remarkable for slight leukocytosis of 11.69, and is otherwise unremarkable. Her CMP is remarkable for slight hyperglycemia of 104, and is otherwise unremarkable. Her CRP is undetectably low. Her swab for the SARS-CoV-2 virus and influenza A + B viruses is negative. 08/06/21 09:16 Test results discussed with the patient. As above, today's work-up is completely normal. I explained that it is still possible that she has COVID-19, as the test can take a few days to become positive, and I therefore recommended that she get retested in 2 or 3 days at the COVID clinic. If she turns positive, they can arrange for her to receive monoclonal antibodies. Otherwise, I advised that she avoid [id number] cough and cold remedies, as they have been shown to be ineffective, but do have side effects, such as an upset stomach. She may take [id number] acetaminophen or ibuprofen as needed for discomfort. She should stay adequately hydrated. Departure - Departure Time of Disposition: 09:17 Condition: Good - Discharge Information *PRESCRIPTION DRUG MONITORING PROGRAM REVIEWED*: Not Applicable *COPY OF PRESCRIPTION DRUG MONITORING REPORT IN PATIENT JHONY: Not Applicable Sepsis Event Note (ED) - Focused Exam Vital Signs: Vital Signs Temp Pulse Resp BP Pulse Ox 08/06/21 06:22 36.4 C 90 20 129/83 100
[2021-08-06 07:06] LABS: CORONAVIRUS COVID-19 NAA NEGATIVE (NEGATIVE)
--- NOTE | 2021-08-06 07:12 | CR ---
Chest: Portable view of the chest was obtained. Comparison: Prior chest x-ray of 07/27/15. Heart size and mediastinum are normal. Lungs are clear with no acute parenchymal change. Bony structures show nothing acute. Electro-stimulating device is seen within the lower thoracic region. Impression: 1. Nothing acute is seen on portable chest x-ray. Diagnostic code #2
== END 2021-08-06 09:29 | disposition home or self-care (01) ==
LOC: JD.ED 05:57
DX: B34.9 Viral infection, unspecified (principal); Z91.030 Bee allergy status; Z72.0 Tobacco use; Z20.822 Contact with and (suspected) exposure to COVID-19
CPT/HCPCS: 0240U; 36415; 71045; 80053; 85025; 86140; 99283

== ENCOUNTER 2021-09-05 09:52 | Emergency (ER) | payer BC, MEDICAID ==
[2021-09-05] MEDS ORDERED: Ketorolac 60 MG/2 ML SDV IM ONE (10:43)
--- NOTE | 2021-09-05 10:49 | EDM.PDOC ---
<Vanessa Mistry - Last Filed: 09/05/21 10:44> ED HPI GENERAL MEDICAL PROBLEM - General Chief Complaint: General Stated Complaint: SORE THROAT Time Seen by Provider: 09/05/21 09:56 Source of Information: Reports: Patient History Limitations: Reports: No Limitations - History of Present Illness INITIAL COMMENTS - FREE TEXT/NARRATIVE: Ms. June Gross is a 41-year-old female who presents to the ER for evaluation of "my head and body hurts This started last night. She took ibuprofen this morning, and it helped a little. Bronson has used her albuterol i nhaler twice in 24 hours, she normally does not need it on a daily basis. Moving and talking make her throat more sore. She rates the pain a 8/10 and describes it as an "ache". She was able to eat and drink normally until last night. Associated symptoms include headache, non-productive cough, 102 fever at home, nausea, chills and shortness of breath. She denies sinus pain, diahrrea, vomiting, and chest pain. She is not immunized for influenza or COVID-19. Generalized Pain Score (Numeric/FACES): 8 - Related Data Allergies Allergy/AdvReac Type Severity Reaction Status Date / Time bee pollen Allergy Swelling Verified 09/05/21 10:05 Home Meds: Home Meds Albuterol Sulfate [Albuterol Sulfate Hfa] 09/05/21 [History] Past Medical History HEENT History: Reports: Allergic Rhinitis, Impaired Vision Cardiovascular History: Reports: Other (See Below) Other Cardiovascular History: heart palpitations Respiratory History: Reports: Asthma Gastrointestinal History: Reports: Colon Polyp, GERD, PUD CHILD AND ADOLESCENT PSYCHIATRIST History: Reports: 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, Musculoskeletal History: Reports: Back Pain, Chronic Other Musculoskeletal History: 4 back surgeries Neurological History: Reports: Headaches, Chronic Psychiatric History: Reports: Anxiety, Other (See Below) Dermatologic History: Reports: Eczema Other Dermatologic History: eczema - Infectious Disease History Infectious Disease History: Reports: None - Past Surgical History HEENT Surgical History: Reports: Adenoidectomy, Tonsillectomy Other HEENT Surgeries/Procedures: adnodectomy GI Surgical History: Reports: Cholecystectomy Female Surgical History: Reports: Hysterectomy, Other (See Below) Other Female Surgeries/Procedures: uterus removal Neurological Surgical History: Reports: Lumbar Spine, Other (See Below) Musculoskeletal Surgical History: Reports: Other (See Below) Other Musculoskeletal Surgeries/Procedures:: back sx Social & Family History - Family History Family Medical History: No Pertinent Family History Cardiac: Reports: Hypertension Respiratory: Reports: Asthma Oncologic: Reports: Breast - Caffeine Use Caffeine Use: Reports: None - Living Situation & Occupation Living situation: Reports: , with Family (Son) Occupation: Employed ([employer]) ED ROS GENERAL - Review of Systems Review Of Systems: Comprehensive ROS is negative, except as noted in HPI. Constitutional: Reports: Fever. Denies: Chills, Diaphoresis HEENT: Reports: No Symptoms Respiratory: Reports: Shortness of Breath, Cough. Denies: Wheezing, Sputum Cardiovascular: Reports: No Symptoms Endocrine: Reports: No Symptoms GI/Abdominal: Reports: No Symptoms : Reports: No Symptoms Musculoskeletal: Reports: No Symptoms Skin: Reports: No Symptoms Neurological: Reports: No Symptoms Psychiatric: Reports: No Symptoms ED EXAM, GENERAL - Physical Exam General Appearance: Alert, Mild Distress (In mild pain. ) Ears: Other (Unable to assess tympanic membranes due to patient complaining of pain. ) Nose: Normal Inspection Throat/Mouth: Other (erythema of the oropharynx) Head: Atraumatic, Normocephalic Respiratory/Chest: Lungs Clear, Normal Breath Sounds, Chest Non-Tender, Other Cardiovascular: Regular Rate, Rhythm, No Edema, No JVD GI/Abdominal: Normal Bowel Sounds, Soft Extremities: Normal Inspection Neurological: Alert, Oriented, Normal Cognition Psychiatric: Normal Affect Skin Exam: Warm, Dry, Intact Departure - Departure Disposition: Home, Self-Care 01 Clinical Impression: Viral illness - Discharge Information Referrals: PCP,None [Primary Care Provider] - Forms: ED Department Discharge Additional Instructions: You were seen in the emergency department today with complaints of flulike symptoms that started this morning. You were tested for Covid and influenza and these did come back negative. Lab studies were also completed at this time. White blood cell count is just slightly elevated however this does happen with viral illness. Urinalysis was unremarkable for infection. Chest x-ray did not show any signs of pneumonia or infectious disease. While in the emergency department you did receive medication for your body aches and this did seem to help. Recommend that you go home and get plenty rest and drink plenty of fluids. May take Tylenol 650 mg alternating with ibuprofen 600 mg every 4 hours as needed for fever or body aches. If you are not better within a couple of days recommend that you be retested for Covid at a local testing center. Should your condition worsen or change, do not hesitate return the emergency department. <MonroyBijal francis M - Last Filed: 09/05/21 13:44> ED EXAM, GENERAL - Physical Exam Exam: See Below Exam Limited By: No Limitations Ears: Normal External Exam, Normal Canal, Hearing Grossly Normal, Normal TMs, Other Throat/Mouth: Normal Inspection, Normal Lips, Normal Oropharynx, Normal Voice, No Airway Compromise, Inflammation, Other Neck: Normal Inspection, Supple, Non-Tender, Full Range of Motion GI/Abdominal: No Distention (Female) Exam: Deferred Rectal (Female) Exam: Deferred Back Exam: Normal Inspection Lymphatic: No Adenopathy Course - Vital Signs Text/Narrative:: Stated above, patient presents with flulike symptoms that started this morning. Physical exam is essentially unremarkable patient is hemodynamically stable. I have reviewed Vanessa Mistry's assessment and charting and agree. We will obtain Covid and influenza testing for this patient. Also medicate her with Toradol 60 mg IM x1 dose. Last Recorded V/S: Last Vital Signs Temp 97.1 F 09/05/21 12:00 Pulse 98 09/05/21 12:00 Resp 18 09/05/21 12:00 BP 101/63 09/05/21 12:00 Pulse Ox 98 09/05/21 12:00 - Orders/Labs/Meds Orders: Active Orders 24 hr Category Date Time Status CULTURE URINE [MREF] Stat Lab 09/05/21 12:10 Received Labs: Laboratory Tests 09/05/21 09/05/21 09/05/21 Range/Units 10:08 11:43 11:43 WBC 13.93 H (3.98-10.04) K/mm3 RBC 4.29 (3.98-5.22) M/mm3 Hgb 13.0 (11.2-15.7) gm/dl Hct 39.2 (34.1-44.9) % MCV 91.4 (79.4-94.8) fl MCH 30.3 (25.6-32.2) pg MCHC 33.2 (32.2-35.5) g/dl RDW Std Deviation 42.7 (36.4-46.3) fL Plt Count 278 (182-369) K/mm3 MPV 10.0 (9.4-12.3) fl Neut % (Auto) 75.0 H (34.0-71.1) % Lymph % (Auto) 15.1 L (19.3-51.7) % [place] % (Auto) 8.4 (4.7-12.5) % Eos % (Auto) 0.9 (0.7-5.8) Baso % (Auto) 0.2 (0.1-1.2) % Neut # (Auto) 10.45 H (1.56-6.13) K/mm3 Lymph # (Auto) 2.10 (1.18-3.74) K/mm3 [place] # (Auto) 1.17 H (0.24-0.36) K/mm3 Eos # (Auto) 0.13 (0.04-0.36) K/mm3 Baso # (Auto) 0.03 (0.01-0.08) K/mm3 Sodium 139 (136-145) mEq/L Potassium 3.5 (3.5-5.1) mEq/L Chloride 103 (98-107) mEq/L Carbon Dioxide 25 (21-32) mEq/L Anion Gap 14.5 (5-15) BUN 11 (7-18) mg/dL Creatinine 0.9 (0.55-1.02) mg/dL Est Cr Clr Drug Dosing 79.19 mL/min Estimated GFR (MDRD) > 60 (>60) mL/min BUN/Creatinine Ratio 12.2 L (14-18) Glucose 92 (70-99) mg/dL Calcium 8.0 L (8.5-10.1) mg/dL Magnesium 1.9 (1.8-2.4) mg/dL Total Bilirubin 0.4 (0.2-1.0) mg/dL AST 12 L (15-37) U/L ALT 24 (14-59) U/L Alkaline Phosphatase 78 (46-116) U/L C-Reactive Protein 4.7 H* (<1.0) mg/dL Total Protein 6.9 (6.4-8.2) g/dl Albumin 3.4 (3.4-5.0) g/dl Globulin 3.5 gm/dL Albumin/Globulin Ratio 1.0 (1-2) Urine Color (Yellow) Urine Appearance (Clear) Urine pH (5.0-8.0) Ur Specific [place] (1.005-1.030) Urine Protein (Negative) Urine Glucose (UA) (Negative) Urine Ketones (Negative) Urine Occult Blood (Negative) Urine Nitrite (Negative) Urine Bilirubin (Negative) Urine Urobilinogen (0.2-1.0) Ur Leukocyte Esterase (Negative) Urine RBC (0-5) /hpf Urine WBC (0-5) /hpf Ur Squamous Epith Cells (0-5) /hpf Urine Bacteria (FEW) /hpf Urine Mucus (FEW) /hpf Influenza Type A RNA Negative (NEGATIVE) Influenza Type B RNA Negative (NEGATIVE) SARS-CoV-2 RNA ([place]) Negative (NEGATIVE) Group A Strep (PCR) (NOT DETECT) 09/05/21 09/05/21 Range/Units 12:10 13:00 WBC (3.98-10.04) K/mm3 RBC (3.98-5.22) M/mm3 Hgb (11.2-15.7) gm/dl Hct (34.1-44.9) % MCV (79.4-94.8) fl MCH (25.6-32.2) pg MCHC (32.2-35.5) g/dl RDW Std Deviation (36.4-46.3) fL Plt Count (182-369) K/mm3 MPV (9.4-12.3) fl Neut % (Auto) (34.0-71.1) % Lymph % (Auto) (19.3-51.7) % [place] % (Auto) (4.7-12.5) % Eos % (Auto) (0.7-5.8) Baso % (Auto) (0.1-1.2) % Neut # (Auto) (1.56-6.13) K/mm3 Lymph # (Auto) (1.18-3.74) K/mm3 [place] # (Auto) (0.24-0.36) K/mm3 Eos # (Auto) (0.04-0.36) K/mm3 Baso # (Auto) (0.01-0.08) K/mm3 Sodium (136-145) mEq/L Potassium (3.5-5.1) mEq/L Chloride (98-107) mEq/L Carbon Dioxide (21-32) mEq/L Anion Gap (5-15) BUN (7-18) mg/dL Creatinine (0.55-1.02) mg/dL Est Cr Clr Drug Dosing mL/min Estimated GFR (MDRD) (>60) mL/min BUN/Creatinine Ratio (14-18) Glucose (70-99) mg/dL Calcium (8.5-10.1) mg/dL Magnesium (1.8-2.4) mg/dL Total Bilirubin (0.2-1.0) mg/dL AST (15-37) U/L ALT (14-59) U/L Alkaline Phosphatase (46-116) U/L C-Reactive Protein (<1.0) mg/dL Total Protein (6.4-8.2) g/dl Albumin (3.4-5.0) g/dl Globulin gm/dL Albumin/Globulin Ratio (1-2) Urine Color Yellow (Yellow) Urine Appearance Clear (Clear) Urine pH 6.5 (5.0-8.0) Ur Specific [place] 1.020 (1.005-1.030) Urine Protein Negative (Negative) Urine Glucose (UA) Negative (Negative) Urine Ketones Negative (Negative) Urine Occult Blood Negative (Negative) Urine Nitrite Negative (Negative) Urine Bilirubin Negative (Negative) Urine Urobilinogen 0.2 (0.2-1.0) Ur Leukocyte Esterase 1+ H (Negative) Urine RBC 0-5 (0-5) /hpf Urine WBC 0-5 (0-5) /hpf Ur Squamous Epith Cells 0-5 (0-5) /hpf Urine Bacteria Few (FEW) /hpf Urine Mucus Moderate H (FEW) /hpf Influenza Type A RNA (NEGATIVE) Influenza Type B RNA (NEGATIVE) SARS-CoV-2 RNA ([place]) (NEGATIVE) Group A Strep (PCR) Not detected (NOT DETECT) Meds: Medications Discontinued Medications Generic Name Dose Route Start Last Admin Trade Name Freq PRN Reason Stop Dose Admin Ketorolac Tromethamine 60 mg 09/05/21 10:43 09/05/21 10:50 Ketorolac 60 Mg/2 Ml Sdv IM 09/05/21 10:44 60 mg ONETIME ONE Administration - Re-Assessments/Exams Free Text/Narrative Re-Assessment/Exam: 09/05/2021 1030 Patient's Covid and influenza tests are negative. I have ordered CBC, CMP, magnesium and a C-reactive protein level on this patient. Also obtain a portable chest x-ray. 09/05/21 13:09 Hematology reveals a WBC of 13.93, hemoglobin 13.0, hematocrit 39.2, platelet count 278 Chemistry reveals a sodium of 139, potassium 3.5, carbon dioxide 25, anion gap 14.5, BUN 11, creatinine 0.9, GFR greater than 60, calcium 8.0, magnesium 1.9, C-reactive protein 4.7 Urinalysis reveals 1+ leukocyte Estrace, nitrite negative, urine WBC 0-5, urine mucus moderate 09/05/21 13:14 Radiologist impression portable view of the chest: Spinal stimulator is unchang ed. Otherwise negative chest. Lungs are clear. 09/05/21 13:42 Group A strep test is negative. Patient will be discharged home. Suspect that this is likely due to a viral illness. She will be given strict return precautions. Departure - Departure Time of Disposition: 13:42 Condition: Good Sepsis Event Note (ED) - Focused Exam Vital Signs: Vital Signs Temp Pulse Resp BP Pulse Ox 09/05/21 12:00 97.1 F 98 18 101/63 98 09/05/21 09:59 97.2 F 96 20 116/71 100 - My Orders Last 24 Hours: My Active Orders 09/05/21 12:10 CULTURE URINE [MREF] Stat - Assessment/Plan Last 24 Hours: My Active Orders 09/05/21 12:10 CULTURE URINE [MREF] Stat
[2021-09-05 10:57] LABS: CORONAVIRUS COVID-19 NAA NEGATIVE (NEGATIVE)
--- NOTE | 2021-09-05 12:57 | CR ---
EXAM: XR CHEST 1 VIEW LOCATION: [facility] [employer] DATE/TIME: 09/05/2021 12:34 PM INDICATION: Fever elevated wbc COMPARISON: 08/06/2021 IMPRESSION: Spinal stimulator is unchanged. Otherwise negative chest. The lungs are clear. SIGNED BY: Barak Robles MD 09/05/2021 1:52 PM [facility]UAD
[2021-09-05 13:48] VITALS: BP 100/72; PULSE 80
== END 2021-09-05 13:57 | disposition home or self-care (01) ==
LOC: JD.ED 09:52
DX: B34.9 Viral infection, unspecified (principal); J45.909 Unspecified asthma, uncomplicated; Z91.030 Bee allergy status; Z20.822 Contact with and (suspected) exposure to COVID-19
CPT/HCPCS: 0240U; 36415; 71045; 71045-26; 80053; 81001; 83735; 85025; 86140; 87086; 87651-QW; 96372; 99284-25; J1885

== ENCOUNTER 2021-12-18 22:34 | Emergency (ER) | payer BC, MEDICAID ==
[2021-12-18 22:56] VITALS: BP 131/89; PULSE 110
[2021-12-18] MEDS ORDERED: Ketorolac 60 MG/2 ML SDV IM ONE (23:09)
== END 2021-12-18 23:31 | disposition home or self-care (01) ==
LOC: JD.ED 22:34
DX: S00.03XA Contusion of scalp, initial encounter (principal); S40.011A Contusion of right shoulder, initial encounter; S60.221A Contusion of right hand, initial encounter; E66.9 Obesity, unspecified; Z91.030 Bee allergy status; Z68.31 Body mass index [BMI] 31.0-31.9, adult; Z72.0 Tobacco use; W20.8XXA Other cause of strike by thrown, projected or falling object, initial encounter
CPT/HCPCS: 96372; 99283; J1885

== ENCOUNTER 2022-03-23 00:49 | Emergency (ER) | payer BC, MEDICAID ==
[2022-03-23 01:11] VITALS: BP 119/84; PULSE 99
== END 2022-03-23 02:04 | disposition home or self-care (01) ==
LOC: JD.ED 00:49
DX: S06.0X0A Concussion without loss of consciousness, initial encounter (principal); H60.502 Unspecified acute noninfective otitis externa, left ear; M54.2 Cervicalgia; E66.9 Obesity, unspecified; Z91.030 Bee allergy status; Z68.32 Body mass index [BMI] 32.0-32.9, adult; Y04.0XXA Assault by unarmed brawl or fight, initial encounter
CPT/HCPCS: 70450; 70450-26; 99284

== ENCOUNTER 2022-07-06 07:51 | Emergency (ER) | payer BC, MEDICAID ==
[2022-07-06 08:06] VITALS: BP 122/75; PULSE 100
[2022-07-06] MEDS ORDERED: Ondansetron 4 MG/2 ML SDV IVPUSH ONE (08:07)
[2022-07-06] MEDS ORDERED: Sodium Chloride 0.9% 1,000 ML IV SCH (08:15)
[2022-07-06] MEDS ORDERED: HYDROmorphone 1 MG/ML Syringe IVPUSH ONE ×2 (08:20→10:46)
== END 2022-07-06 12:52 | disposition home or self-care (01) ==
LOC: JD.ED 07:51
DX: K52.9 Noninfective gastroenteritis and colitis, unspecified (principal); E27.9 Disorder of adrenal gland, unspecified; F17.210 Nicotine dependence, cigarettes, uncomplicated; E66.9 Obesity, unspecified; Z68.32 Body mass index [BMI] 32.0-32.9, adult; Z91.030 Bee allergy status; Z90.49 Acquired absence of other specified parts of digestive tract; Z90.710 Acquired absence of both cervix and uterus
CPT/HCPCS: 36415; 74177; 80053; 81001; 81025; 83690; 83735; 85025; 86140; 96361; 96374; 96375; 96376; 99284; J1170; J2405; J7030

== ENCOUNTER 2022-12-28 14:05 | Emergency (ER) | payer BC, MEDICAID ==
[2022-12-28] MEDS ORDERED: Metoclopramide 10 MG/2 ML SDV IM ONE (15:14)
[2022-12-28] MEDS ORDERED: Ketorolac 30 MG/ML SDV IM ONE (15:14)
[2022-12-28] MEDS ORDERED: diphenhydrAMINE 50 MG/ML SDV IM ONE (15:14)
[2022-12-28 16:59] VITALS: BP 106/63; PULSE 78
== END 2022-12-28 16:55 | disposition home or self-care (01) ==
LOC: JD.ED 14:05
DX: R51.9 Headache, unspecified (principal); J45.909 Unspecified asthma, uncomplicated; E66.9 Obesity, unspecified; Z68.34 Body mass index [BMI] 34.0-34.9, adult; Z91.030 Bee allergy status
CPT/HCPCS: 96372; 99283; J1200; J1885; J2765

== ENCOUNTER 2023-01-06 08:56 | Emergency (ER) | payer BC, MEDICAID ==
[2023-01-06 09:08] VITALS: BP 126/66; PULSE 85
[2023-01-06 10:43] LABS: BASOPHILS ABSOLUTE AUTO 0.02 K/mm3 (0.01-0.08); BASOPHILS PERCENT AUTO 0.2 % (0.1-1.2); EOSINOPHILS ABSOLUTE AUTO 0.34 K/mm3 (0.04-0.36); EOSINOPHILS PERCENT AUTO 3.7 (0.7-5.8); HEMATOCRIT 37.5 % (34.1-44.9); IMMATURE GRAN ABSOLUTE AUTO 0.02 K/mm3 (0.00-0.10); IMMATURE GRAN PERCENT AUTO 0.2 % (<=1.0); LYMPHOCYTES ABSOLUTE AUTO 2.68 K/mm3 (1.18-3.74); LYMPHOCYTES PERCENT AUTO 29.2 % (19.3-51.7); MEAN CORPUSCULAR HEMOGLOBIN 29.7 pg (25.6-32.2); MEAN CORPUSCULAR VOLUME 92.8 fl (79.4-94.8); MEAN PLATELET VOLUME 10.2 fl (9.4-12.3); MONOCYTES ABSOLUTE AUTO 1.01 K/mm3 (0.24-0.36); NEUTROPHILS ABSOLUTE AUTO 5.11 K/mm3 (1.56-6.13); NEUTROPHILS PERCENT AUTO 55.7 % (34.0-71.1); PLATELET COUNT,PLT 306 K/mm3 (182-369); RED BLOOD CELL COUNT 4.04 M/mm3 (3.98-5.22); WHITE BLOOD CELL COUNT,WBC 9.18 K/mm3 (3.98-10.04)
[2023-01-06 11:13] LABS: A/G RATIO 0.9 (1-2); ALBUMIN 2.9 g/dl (3.4-5.0); ANION GAP 10.1 (5-15); BILIRUBIN TOTAL 0.2 mg/dL (0.2-1.0); EST CRCL DRUG DOSING (CG) 70.54 mL/min; POTASSIUM,K 4.1 mEq/L (3.5-5.1); PROTEIN TOTAL,TP 6.3 g/dl (6.4-8.2)
[2023-01-06 11:52] LABS: APPEARANCE,URINE CLEAR (Clear); BILIRUBIN,URINE NEGATIVE (Negative); COLOR,URINE YELLOW (Yellow); GLUCOSE,URINE NEGATIVE (Negative); KETONES,URINE NEGATIVE (Negative); LEUKOCYTE ESTERASE,URINE NEGATIVE (Negative); NITRITE,URINE NEGATIVE (Negative); OCCULT BLOOD,URINE NEGATIVE (Negative); PROTEIN,URINE NEGATIVE (Negative); UROBILINOGEN,URINE 0.2 (0.2-1.0)
[2023-01-06 12:08] LABS: BACTERIA,URINE FEW /hpf (FEW); MUCUS,URINE MODERATE /hpf (FEW); RBC,URINE 0-5 /hpf (0-5); SQUAMOUS EPITHELIAL CELLS,UR 0-5 /hpf (0-5); WBC,URINE 0-5 /hpf (0-5)
== END 2023-01-06 13:20 | disposition home or self-care (01) ==
LOC: JD.ED 08:56
DX: R60.0 Localized edema (principal); E88.09 Other disorders of plasma-protein metabolism, not elsewhere classified; J45.909 Unspecified asthma, uncomplicated; K21.9 Gastro-esophageal reflux disease without esophagitis; E66.9 Obesity, unspecified; Z91.030 Bee allergy status; Z72.0 Tobacco use; Z68.34 Body mass index [BMI] 34.0-34.9, adult
CPT/HCPCS: 36415; 80053; 81001; 83880; 85025; 85379; 99283

== ENCOUNTER 2023-09-27 09:37 | Inpatient (IN) | payer BC, MEDICAID ==
[2023-09-27 10:34] LABS: CORONAVIRUS COVID-19 NAA NEGATIVE (NEGATIVE); INFLUENZA A NAA NEGATIVE (NEGATIVE); RESPIRATORY SYNCYTIAL VIR NAA NEGATIVE (NEGATIVE)
[2023-09-27] MEDS ORDERED: methylPREDNISolone Sodium Succinate 125 MG/2 ML SDV IVPUSH ONE (10:40)
[2023-09-27] MEDS ORDERED: Acetaminophen 325 MG Tab PO ONE (10:44)
[2023-09-27] MEDS ORDERED: Dextrose 5%-0.9% NaCl 1,000 ML IV SCH (10:45)
[2023-09-27] MEDS: Albuterol/Ipratropium 3.0-0.5 MG/3 ML Neb Soln NEB PRN ×2 (10:54→11:15)
[2023-09-27] MEDS ORDERED: Albuterol/Ipratropium 3.0-0.5 MG/3 ML Neb Soln NEB PRN ×3 (11:11→14:50)
[2023-09-27 11:21] LABS: BASOPHILS ABSOLUTE AUTO 0.1 K/mm3 (0.0-0.2); BASOPHILS PERCENT AUTO 0.5 % (0.0-1.0); EOSINOPHILS ABSOLUTE AUTO 0.4 K/mm3 (0.0-0.4); EOSINOPHILS PERCENT AUTO 3.4 % (0.0-6.0); HEMATOCRIT 42.9 % (37.0-47.0); HEMOGLOBIN 13.9 gm/dl (12.0-16.0); IMMATURE GRAN ABSOLUTE AUTO 0.06 K/mm3 (0.00-0.05); IMMATURE GRAN PERCENT AUTO 0.5 % (0.0-0.4); LYMPHOCYTES PERCENT AUTO 27.2 % (24.0-44.0); MEAN CORPUSCULAR HEMOGLOBIN 28.6 pg (28.0-32.0); MEAN CORPUSCULAR HGB CONC 32.4 g/dl (32.0-36.0); MEAN CORPUSCULAR VOLUME 88.3 fl (83.0-99.0); MEAN PLATELET VOLUME 9.9 fl (9.4-12.3); MONOCYTES ABSOLUTE AUTO 0.8 K/mm3 (0.0-0.8); MONOCYTES PERCENT AUTO 7.7 % (0.0-8.0); NEUTROPHILS ABSOLUTE AUTO 6.7 K/mm3 (1.8-7.7); NEUTROPHILS PERCENT AUTO 60.7 % (41.0-71.0); PLATELET COUNT,PLT 324 K/mm3 (150-400); RED BLOOD CELL COUNT 4.86 M/mm3 (4.10-5.30); WHITE BLOOD CELL COUNT,WBC 10.97 K/mm3 (3.9-11.3)
[2023-09-27 11:38] LABS: A/G RATIO 0.8 (1-2); ALBUMIN 3.2 g/dl (3.4-5.0); BILIRUBIN TOTAL 0.2 mg/dL (0.2-1.0); BUN/CREATININE RATIO 13.6 (14-18); C-REACTIVE PROTEIN 1.2 mg/dL (<1.0); CALCIUM 8.7 mg/dL (8.5-10.1); CREATININE 1.1 mg/dL (0.55-1.02); EST CRCL DRUG DOSING (CG) 63.47 mL/min; PROTEIN TOTAL,TP 7.3 g/dl (6.4-8.2)
[2023-09-27] MEDS ORDERED: Albuterol 0.083% 2.5 MG/3 ML Neb Soln NEB ONE (12:11)
[2023-09-27] MEDS ORDERED: Acetaminophen 325 MG Tab PO PRN (13:31)
[2023-09-27] MEDS ORDERED: Acetaminophen/HYDROcodone 325-5 MG Tab PO PRN (13:31)
[2023-09-27] MEDS ORDERED: Ondansetron 4 MG/2 ML SDV IV PRN (13:31)
[2023-09-27] MEDS ORDERED: Morphine 2 MG/ML SYRINGE IVPUSH PRN (13:31)
[2023-09-27] MEDS ORDERED: cefTRIAXone 2 GM in Sodium Chloride 0.9% 100 ML IV ONE (13:33)
[2023-09-27] MEDS ORDERED: Albuterol 0.083% 2.5 MG/3 ML Neb Soln NEB PRN (13:37)
[2023-09-27] MEDS ORDERED: guaiFENesin/Dextromethorphan 100-10 MG/5 ML Soln 5 ML Cup PO PRN (13:40)
[2023-09-27] MEDS ORDERED: methylPREDNISolone Sodium Succinate 125 MG/2 ML SDV IVPUSH SCH ×2 (13:45→17:00)
[2023-09-27] MEDS: Lactated Ringers 1,000 ML IV SCH ×2 (14:04→15:36)
[2023-09-27] MEDS: Enoxaparin 40 MG/0.4 ML Syringe SUBCUT SCH (14:15)
[2023-09-27] MEDS: methylPREDNISolone Sodium Succinate 40 MG/1 ML SDV IVPUSH SCH (16:38)
[2023-09-27] MEDS ORDERED: Nicotine 14 MG/24 Hr Patch TRDERM PRN (17:26)
[2023-09-27] MEDS: Albuterol/Ipratropium 3.0-0.5 MG/3 ML Neb Soln NEB SCH ×2 (17:59→21:33)
[2023-09-28] MEDS: Albuterol/Ipratropium 3.0-0.5 MG/3 ML Neb Soln NEB SCH ×6 (01:56→21:22)
[2023-09-28 05:33] LABS: HEMATOCRIT 39.4 % (37.0-47.0); HEMOGLOBIN 12.8 gm/dl (12.0-16.0); MEAN CORPUSCULAR HEMOGLOBIN 29.4 pg (28.0-32.0); MEAN CORPUSCULAR HGB CONC 32.5 g/dl (32.0-36.0); MEAN CORPUSCULAR VOLUME 90.6 fl (83.0-99.0); PLATELET COUNT,PLT 351 K/mm3 (150-400); RED BLOOD CELL COUNT 4.35 M/mm3 (4.10-5.30); WHITE BLOOD CELL COUNT,WBC 27.32 K/mm3 (3.9-11.3)
[2023-09-28 05:46] LABS: ANION GAP 14.7 (5-15); BUN/CREATININE RATIO 9.1 (14-18); CALCIUM 8.7 mg/dL (8.5-10.1); CREATININE 1.1 mg/dL (0.55-1.02); EST CRCL DRUG DOSING (CG) 63.47 mL/min; POTASSIUM,K 4.7 mEq/L (3.5-5.1)
[2023-09-28] MEDS: methylPREDNISolone Sodium Succinate 40 MG/1 ML SDV IVPUSH SCH (06:07)
[2023-09-28] MEDS: Pantoprazole 40 MG Tab.CR PO SCH (06:07)
[2023-09-28 06:13] LABS: BAND PERCENT MAN 0 % (0-10); BASOPHILS PERCENT MAN 0 (0.1-1.2); EOSINOPHILS PERCENT MAN 1 % (0.7-5.8); LYMPHOCYTES % ATYPICAL MANUAL 0 %; LYMPHOCYTES PERCENT MAN 7 % (20-40); MONOCYTES PERCENT MAN 6 % (2-10); PLATELET COUNT ESTIMATE ADEQUATE
[2023-09-28 06:54] LABS: HEMOGLOBIN A1C 5.9 %
[2023-09-28] MEDS: Enoxaparin 40 MG/0.4 ML Syringe SUBCUT SCH (08:09)
[2023-09-28] MEDS ORDERED: Lactated Ringers 1,000 ML IV ONE (08:45)
[2023-09-28] MEDS ORDERED: methylPREDNISolone Sodium Succinate 40 MG/1 ML SDV IVPUSH SCH (09:00)
[2023-09-28] MEDS: Azithromycin 500 MG in Sodium Chloride 0.9% 250 ML IV SCH (10:56)
[2023-09-28] MEDS ORDERED: cefTRIAXone 1 GM in Sodium Chloride 0.9% 100 ML IV SCH (11:00)
[2023-09-29] MEDS: Albuterol/Ipratropium 3.0-0.5 MG/3 ML Neb Soln NEB SCH ×2 (01:46→05:56)
[2023-09-29 05:29] LABS: BASOPHILS ABSOLUTE AUTO 0.1 K/mm3 (0.0-0.2); BASOPHILS PERCENT AUTO 0.3 % (0.0-1.0); EOSINOPHILS PERCENT AUTO 0.1 % (0.0-6.0); HEMATOCRIT 37.8 % (37.0-47.0); HEMOGLOBIN 12.3 gm/dl (12.0-16.0); IMMATURE GRAN ABSOLUTE AUTO 0.39 K/mm3 (0.00-0.05); IMMATURE GRAN PERCENT AUTO 1.6 % (0.0-0.4); LYMPHOCYTES ABSOLUTE AUTO 4.9 K/mm3 (1.0-4.8); LYMPHOCYTES PERCENT AUTO 20.4 % (24.0-44.0); MEAN CORPUSCULAR HEMOGLOBIN 29.1 pg (28.0-32.0); MEAN CORPUSCULAR HGB CONC 32.5 g/dl (32.0-36.0); MEAN CORPUSCULAR VOLUME 89.6 fl (83.0-99.0); MEAN PLATELET VOLUME 9.8 fl (9.4-12.3); MONOCYTES ABSOLUTE AUTO 1.3 K/mm3 (0.0-0.8); MONOCYTES PERCENT AUTO 5.3 % (0.0-8.0); NEUTROPHILS ABSOLUTE AUTO 17.5 K/mm3 (1.8-7.7); NEUTROPHILS PERCENT AUTO 72.3 % (41.0-71.0); PLATELET COUNT,PLT 347 K/mm3 (150-400); RED BLOOD CELL COUNT 4.22 M/mm3 (4.10-5.30); WHITE BLOOD CELL COUNT,WBC 24.14 K/mm3 (3.9-11.3)
[2023-09-29 05:42] LABS: ANION GAP 11.2 (5-15); CALCIUM 8.2 mg/dL (8.5-10.1); EST CRCL DRUG DOSING (CG) 69.81 mL/min; POTASSIUM,K 4.2 mEq/L (3.5-5.1)
[2023-09-29] MEDS: Pantoprazole 40 MG Tab.CR PO SCH (06:00)
[2023-09-29] MEDS: Enoxaparin 40 MG/0.4 ML Syringe SUBCUT SCH (08:45)
[2023-09-29] MEDS ORDERED: methylPREDNISolone Sodium Succinate 40 MG/1 ML SDV IVPUSH SCH (09:00)
[2023-09-29] MEDS: Azithromycin 500 MG in Sodium Chloride 0.9% 250 ML IV SCH (10:26)
[2023-09-29 12:01] VITALS: BP 105/65; PULSE 90
== END 2023-09-29 14:54 | disposition home or self-care (01) | DRG 141 ==
LOC: JD.ED 09:37 → JD.MS 13:32
PROVIDERS: ADMIT Student in an Organized Health Care Education/Training Program; ATTEND Student in an Organized Health Care Education/Training Program
DX: J45.901 Unspecified asthma with (acute) exacerbation (principal); N17.9 Acute kidney failure, unspecified; J96.90 Respiratory failure, unspecified, unspecified whether with hypoxia or hypercapnia; E66.9 Obesity, unspecified; K21.9 Gastro-esophageal reflux disease without esophagitis; F41.9 Anxiety disorder, unspecified; F17.210 Nicotine dependence, cigarettes, uncomplicated; Z91.030 Bee allergy status; Z86.010 Personal history of colon polyps; Z90.710 Acquired absence of both cervix and uterus; Z90.49 Acquired absence of other specified parts of digestive tract; Z90.89 Acquired absence of other organs; Z68.33 Body mass index [BMI] 33.0-33.9, adult; Z11.52 Encounter for screening for COVID-19; Z79.899 Other long term (current) drug therapy
CPT/HCPCS: 0241U; 36415; 71046; 71046-26; 80048; 80053; 83036; 83735; 83880; 84146; 85007; 85025; 85027; 86140; 94640; 94761; 96361; 96365; 96375; 99222; 99232; 99239; 99285; 99285-25; A9270-GY; J0456; J0696; J1650; J2920; J2930; J3475; J3490; J7042; J7050; J7120; J7620-GY

== ENCOUNTER 2025-07-25 18:27 | Emergency (ER) | payer BC ==
[2025-07-25 21:13] VITALS: BP 123/82; PULSE 89
== END 2025-07-25 21:10 | disposition home or self-care (01) ==
LOC: JD.ED 18:27
DX: R10.A1 Flank pain, right side (principal); J45.909 Unspecified asthma, uncomplicated; E66.9 Obesity, unspecified; Z79.51 Long term (current) use of inhaled steroids; Z91.030 Bee allergy status; Z90.89 Acquired absence of other organs; Z90.49 Acquired absence of other specified parts of digestive tract; Z68.32 Body mass index [BMI] 32.0-32.9, adult
CPT/HCPCS: 96372; 99283; J1171